=== PATIENT | female | born 1970 | race Caucasian/White ===

== ENCOUNTER 2019-01-17 13:06 | Inpatient (IN) | payer BC ==
[2019-01-17] MEDS ORDERED: IPRATROPIUM 0.5 MG/2.5 ML NEBU INHALATION STA (13:24)
[2019-01-17] MEDS ORDERED: ALBUTEROL NEBULIZED 2.5 MG/3 ML INHALATION STA (13:24)
[2019-01-17] MEDS ORDERED: methylPREDNISolone SOD SUCCI 125 MG/2 ML VIAL IV STA (13:24)
[2019-01-17] MEDS ORDERED: MAGNESIUM SULFATE-D5W PMX 1 GM in DEXTROSE/WATER 1 100ML.BAG IVPB STA (13:24)
[2019-01-17] MEDS ORDERED: SODIUM CHLORIDE 0.9% 500 ML 500 ML IV STA (13:24)
--- NOTE | 2019-01-17 13:36 | ED ---
General Adult HPI - General Chief complaint: Shortness of Breath Stated complaint: [place] Time Seen by Provider: 01/17/19 13:10 Source: patient, RN notes reviewed Mode of arrival: ambulatory Limitations: no limitations - History of Present Illness Initial comments: This is a 48-year-old female with a past medical history significant for asthma. Patient states she was recently told she had pneumonia and was started on antibiotics but there was no chest x-ray done. Patient comes in today because her breathing is getting worse and she no longer has any tubing for her nebulizer. Patient denies any fever that she knows of but has had the chills. Patient denies any chest pain or palpitations. Patient states she is coughing quite a bit but not a lot of sputum production. Patient denies any swelling to the legs or any calf tenderness. Patient denies any other symptoms at this time. Patient denies nausea vomiting diarrhea. Patient denies headache patient denies numbness weakness. - Related Data Home Medications Medication Instructions Recorded Confirmed Ibuprofen [Motrin Ib] 400 mg PO Q4H PRN 01/17/19 01/17/19 Levofloxacin [Levaquin] 500 mg PO W/SUPPER 01/17/19 01/17/19 guaiFENesin [Mucinex] 1,200 mg PO Q12H PRN 01/17/19 01/17/19 methylPREDNISolone [Medrol Dose See Taper PO DIRECTED 01/17/19 01/17/19 Pack] Allergies Allergy/AdvReac Type Severity Reaction Status Date / Time No Known Allergies Allergy Verified 01/17/19 13:34 Review of Systems ROS Statement: Those systems with pertinent positive or pertinent negative responses have been documented in the HPI. ROS Other: All systems not noted in ROS Statement are negative. Past Medical History Past Medical History: No Reported History, Asthma Additional Past Medical History / Comment(s): heart murmer since childhood History of Any Multi-Drug Resistant Organisms: None Reported Past Surgical History: Section Past Anesthesia/Blood Transfusion Reactions: No Reported Reaction Past Psychological History: No Psychological Hx Reported Smoking Status: Light tobacco smoker Past Alcohol Use History: None Reported Past Drug Use History: None Reported - Past Family History Father Family Medical History: No Reported History General Exam - General Exam Comments Initial Comments: GENERAL: Patient is well-developed and well-nourished. Patient is nontoxic and well- hydrated and is in mild distress. ENT: Neck is soft and supple. No significant lymphadenopathy is noted. Oropharynx is clear. Moist mucous membranes. Neck has full range of motion without el iciting any pain. EYES: The sclera were anicteric and conjunctiva were pink and moist. Extraocular movements were intact and pupils were equal round and reactive to light. Eyelids were unremarkable. PULMONARY: Diffuse expiratory wheezing CARDIOVASCULAR: There is a regular rate and rhythm without any murmurs gallops or rubs. ABDOMEN: Soft and nontender with normal bowel sounds. SKIN: Skin is clear with no lesions or rashes and otherwise unremarkable. NEUROLOGIC: Patient is alert and oriented x3. Cranial nerves II through XII are grossly intact. Motor and sensory are also intact. Normal speech, volume and content. Symmetrical smile. MUSCULOSKELETAL: Normal extremities with adequate strength and full range of motion. No lower extremity swelling or edema. No calf tenderness. LYMPHATICS: No significant lymphadenopathy is noted PSYCHIATRIC: Normal psychiatric evaluation. Limitations: no limitations Course Vital Signs 01/17/19 01/17/19 01/17/19 13:09 14:19 14:45 Temperature 97.3 F L Pulse Rate 99 74 97 Respiratory 28 H Rate Blood Pressure 146/87 O2 Sat by Pulse 89 L Oximetry 01/17/19 15:00 Temperature 97.8 F Pulse Rate 92 Respiratory 22 Rate Blood Pressure 113/99 O2 Sat by Pulse 94 L Oximetry Medical Decision Making - Medical Decision Making Chest x-ray shows no acute abnormality. I gave the patient audible breathing treatments in the department as well as steroids. I went back into reevaluate the patient patient's lungs were still diffusely wheezing and she only felt mildly better. I started the patient on Rocephin. I spoke with Dr. Gaines he agreed to admit the patient admitted the patient wrote admitting orders. - Lab Data Result diagrams: 01/17/19 13:29 01/17/19 13:29 Lab Results 01/17/19 01/17/19 01/17/19 Range/Units 13:29 13:29 13:29 WBC 13.9 H (3.8-10.6) k/uL RBC 4.78 (3.80-5.40) m/uL Hgb 15.2 (11.4-16.0) gm/dL Hct 43.6 (34.0-46.0) % MCV 91.2 (80.0-100.0) fL MCH 31.7 (25.0-35.0) pg MCHC 34.8 (31.0-37.0) g/dL RDW 13.0 (11.5-15.5) % Plt Count 360 (150-450) k/uL Neutrophils % 87 % Lymphocytes % 7 % Monocytes % 4 % Eosinophils % 0 % Basophils % 1 % Neutrophils # 12.1 H (1.3-7.7) k/uL Lymphocytes # 0.9 L (1.0-4.8) k/uL Monocytes # 0.5 (0-1.0) k/uL Eosinophils # 0.0 (0-0.7) k/uL Basophils # 0.1 (0-0.2) k/uL PT 10.2 (9.0-12.0) sec INR 0.9 (<1.2) APTT 23.0 (22.0-30.0) sec D-Dimer 0.28 (<0.60) mg/L FEU Sodium 140 (137-145) mmol/L Potassium 4.6 (3.5-5.1) mmol/L Chloride 105 (98-107) mmol/L Carbon Dioxide 24 (22-30) mmol/L Anion Gap 11 mmol/L BUN 16 (7-17) mg/dL Creatinine 0.86 (0.52-1.04) mg/dL Est GFR (CKD-EPI)AfAm >90 (>60 ml/min/1.73 sqM) Est GFR (CKD-EPI)NonAf 81 (>60 ml/min/1.73 sqM) Glucose 117 H (74-99) mg/dL Calcium 10.1 (8.4-10.2) mg/dL Magnesium 2.2 (1.6-2.3) mg/dL Total Bilirubin 0.5 (0.2-1.3) mg/dL AST 27 (14-36) U/L ALT 24 (9-52) U/L Alkaline Phosphatase 115 (38-126) U/L Troponin I (0.000-0.034) ng/mL Total Protein 8.4 H (6.3-8.2) g/dL Albumin 4.5 (3.5-5.0) g/dL 01/17/19 Range/Units 13:29 WBC (3.8-10.6) k/uL RBC (3.80-5.40) m/uL Hgb (11.4-16.0) gm/dL Hct (34.0-46.0) % MCV (80.0-100.0) fL MCH (25.0-35.0) pg MCHC (31.0-37.0) g/dL RDW (11.5-15.5) % Plt Count (150-450) k/uL Neutrophils % % Lymphocytes % % Monocytes % % Eosinophils % % Basophils % % Neutrophils # (1.3-7.7) k/uL Lymphocytes # (1.0-4.8) k/uL Monocytes # (0-1.0) k/uL Eosinophils # (0-0.7) k/uL Basophils # (0-0.2) k/uL PT (9.0-12.0) sec INR (<1.2) APTT (22.0-30.0) sec D-Dimer (<0.60) mg/L FEU Sodium (137-145) mmol/L Potassium (3.5-5.1) mmol/L Chloride (98-107) mmol/L Carbon Dioxide (22-30) mmol/L Anion Gap mmol/L BUN (7-17) mg/dL Creatinine (0.52-1.04) mg/dL Est GFR (CKD-EPI)AfAm (>60 ml/min/1.73 sqM) Est GFR (CKD-EPI)NonAf (>60 ml/min/1.73 sqM) Glucose (74-99) mg/dL Calcium (8.4-10.2) mg/dL Magnesium (1.6-2.3) mg/dL Total Bilirubin (0.2-1.3) mg/dL AST (14-36) U/L ALT (9-52) U/L Alkaline Phosphatase (38-126) U/L Troponin I <0.012 (0.000-0.034) ng/mL Total Protein (6.3-8.2) g/dL Albumin (3.5-5.0) g/dL Critical Care Time Critical Care Time: Yes Total Critical Care Time: 35 Disposition Clinical Impression: Status asthmaticus, Acute bronchitis Disposition: ADMITTED IP TO THIS HOSP Referrals: Greg Sigala MD [Primary Care Provider] - 1-2 days Time of Disposition: 16:05
[2019-01-17 13:38] LABS: Basophils # (A) 0.1 k/uL (0-0.2); Basophils % (A) 1 %; Eosinophils % (A) 0 %; HCT 43.6 % (34.0-46.0); HGB 15.2 gm/dL (11.4-16.0); Lymphocytes # (A) 0.9 k/uL (1.0-4.8); Lymphocytes % (A) 7 %; MCH 31.7 pg (25.0-35.0); MCHC 34.8 g/dL (31.0-37.0); MCV 91.2 fL (80.0-100.0); Mean Platelet Volume 6.3; Monocytes # (A) 0.5 k/uL (0-1.0); Monocytes % (A) 4 %; Neutrophils # (A) 12.1 k/uL (1.3-7.7); Neutrophils % (A) 87 %; Platelet Count 360 k/uL (150-450); RBC 4.78 m/uL (3.80-5.40); WBC 13.9 k/uL (3.8-10.6)
[2019-01-17 13:47] LABS: ALT 24 U/L (9-52); AST 27 U/L (14-36); African American GFR (CKD) >90 (>60 ml/min/1.73 sqM); Albumin 4.5 g/dL (3.5-5.0); Alkaline Phosphatase 115 U/L (38-126); Anion Gap 11 mmol/L; Blood Urea Nitrogen 16 mg/dL (7-17); Calcium 10.1 mg/dL (8.4-10.2); Carbon Dioxide 24 mmol/L (22-30); Chloride 105 mmol/L (98-107); Glucose 117 mg/dL (74-99); Magnesium 2.2 mg/dL (1.6-2.3); Potassium 4.6 mmol/L (3.5-5.1); Sodium 140 mmol/L (137-145); Total Bilirubin 0.5 mg/dL (0.2-1.3); Total Protein 8.4 g/dL (6.3-8.2)
[2019-01-17 13:53] LABS: D-Dimer 0.28 mg/L FEU (<0.60); INR 0.9 (<1.2); Prothrombin Time 10.2 sec (9.0-12.0)
[2019-01-17] MEDS ORDERED: cefTRIAXone IN SWFI 1,000 MG/10 ML SYRINGE IVP STA ×2 (13:57→15:46)
--- NOTE | 2019-01-17 15:07 | XR ---
EXAMINATION TYPE: XR chest 2V DATE OF EXAM: 01/17/2019 COMPARISON: 03/17/2014 HISTORY: Chest pain TECHNIQUE: Frontal and lateral views of the chest are obtained. FINDINGS: There is no focal air space opacity. No evidence for pneumothorax. No pleural effusion. The cardiac silhouette size is within normal limits. The osseous structures are grossly intact. IMPRESSION: 1. No acute cardiopulmonary process.
[2019-01-17] MEDS ORDERED: IPRATROPIUM-ALBUTEROL 3 ML NEB INHALATION PRN ×2 (16:06→23:11)
[2019-01-17] MEDS ORDERED: AZITHROMYCIN 500 MG TAB PO SCH (17:00)
[2019-01-17] MEDS: methylPREDNISolone SOD SUCCI 125 MG/2 ML VIAL IV SCH ×2 (18:51→23:22)
[2019-01-17 19:08] VITALS: BMI 41.1
[2019-01-17] MEDS: BUDESONIDE 0.5 MG/2 ML NEBU INHALATION SCH ×2 (20:06→20:44)
[2019-01-17] MEDS: IPRATROPIUM-ALBUTEROL 3 ML NEB INHALATION SCH (20:06)
[2019-01-17 20:31] LABS: Glucose,Whole Blood 147 mg/dL (75-99)
[2019-01-17] MEDS: LEVOFLOXACIN 500 MG TAB PO SCH (20:43)
[2019-01-17] MEDS: INSULIN ASPART (NovoLOG) 100 UNIT/ML VIAL SQ SCH (20:44)
--- NOTE | 2019-01-17 21:51 | P.HPIM ---
History of Present Illness H&P Date: 01/17/19 Chief Complaint: Dysuria Patient is a 48-year-old female with a known history of asthma and occasional smoking came to ER with the complaints of worsening shortness of breath while she was at work today morning. Patient was brought to the hospital by her coworker. Patient's symptoms started with difficulty in breathing and cough and congestion last Monday. Patient was seen by her physician on Monday. She was started on Levaquin and adult Dosepak. Patient has been taking her medications but her symptoms did not resolve. Patient presents to the hospital due to wor sening shortness of breath and wheezing. Patient says that she did have fever 2 days back. Patient has been afebrile currently. No complaints of chest pain. Patient does have exertional dyspnea even with minimal ambulation. Does have cough without sputum production. Denied any fever currently. No chest pain. No leg swelling. Denied any recent travel. Patient was tachypneic and pulse ox was 89% when she came to the hospital. Chest x-ray showed no acute cardiopulmonary process. WBC 13.9 Review of Systems Constitutional: Patient denies any fever or chills . No generalized weakness or weight loss. Abdomen: Patient denied nausea vomiting and diarrhea and abdominal pain. Cardiovascular: Patient denies any chest pain or short of breath no palpitations. Respiratory: Without sputum production and shortness of breath Neurologic: Patient denied any numbness or tingling headache. Musculoskeletal: Patient denies any complaints of joint swelling or deformity. Skin: Negative Psychiatric: Negative Endocrine: No heat or cold intolerance. No recent weight gain. Genitourinary: No dysuria or hematuria. All other 14 point ROS negative except the above Past Medical History Past Medical History: No Reported History, Asthma Additional Past Medical History / Comment(s): heart murmer since childhood History of Any Multi-Drug Resistant Organisms: None Reported Past Surgical History: Section Past Anesthesia/Blood Transfusion Reactions: No Reported Reaction Past Psychological History: No Psychological Hx Reported Smoking Status: Light tobacco smoker Past Alcohol Use History: None Reported Past Drug Use History: None Reported - Past Family History Father Family Medical History: No Reported History Medications and Allergies Home Medications Medication Instructions Recorded Confirmed Type Ibuprofen [Motrin Ib] 400 mg PO Q4H PRN 01/17/19 01/17/19 History Levofloxacin [Levaquin] 500 mg PO W/SUPPER 01/17/19 01/17/19 History guaiFENesin [Mucinex] 1,200 mg PO Q12H PRN 01/17/19 01/17/19 History methylPREDNISolone [Medrol Dose See Taper PO DIRECTED 01/17/19 01/17/19 History Pack] Allergies Allergy/AdvReac Type Severity Reaction Status Date / Time No Known Allergies Allergy Verified 01/17/19 13:34 Physical Exam Vitals: Vital Signs Temp Pulse Pulse Resp BP BP Pulse Ox 01/17/19 20:26 100 01/17/19 20:10 101 H 93 L 01/17/19 18:57 97.8 F 90 18 116/65 90 L 01/17/19 18:20 97.6 F 91 16 118/71 93 L 01/17/19 17:08 98.0 F 86 20 131/86 100 01/17/19 15:00 97.8 F 92 22 113/99 94 L 01/17/19 14:45 97 01/17/19 14:19 74 01/17/19 13:09 97.3 F L 99 28 H 146/87 89 L Intake and Output 01/17/19 01/17/19 01/17/19 06:59 14:59 22:59 Other: # Voids 1 Weight 108.862 kg PHYSICAL EXAMINATION: Patient is lying in the bed mild distress, awake alert and oriented.. HEENT: Normocephalic. Neck is supple. Pupils reactive. Nostrils clear. Oral cavity is moist. Ears reveal no drainage. Neck reveals no JVD, carotid bruits, or thyromegaly. CHEST EXAMINATION: Trachea is central. Symmetrical expansion. Bilateral diffuse wheezing and diminished air entry. CARDIAC: Normal S1, S2 with no gallops. Positive mild systolic murmur ABDOMEN: Soft. Bowel sounds normal. No organomegaly. No abdominal bruits. Extremities: reveal no edema. No clubbing or cyanosis Neurologically awake, alert, oriented x3 with well-coordinated movements. No focal deficits noted Skin: No rash or skin lesions. Psychiatric: Coperative. Nonsuicidal Musculoskeletal: No joint swelling or deformity. Normal range of motion. Results CBC & Chem 7: 01/17/19 13:29 01/17/19 13:29 Labs: Abnormal Lab Results - Last 24 Hours (Table) 01/17/19 01/17/19 01/17/19 Range/Units 13:29 13:29 20:29 WBC 13.9 H (3.8-10.6) k/uL Neutrophils # 12.1 H (1.3-7.7) k/uL Lymphocytes # 0.9 L (1.0-4.8) k/uL Glucose 117 H (74-99) mg/dL POC Glucose (mg/dL) 147 H (75-99) mg/dL Total Protein 8.4 H (6.3-8.2) g/dL Thrombosis Risk Factor Assmnt - DVT/VTE Prophylaxis DVT/VTE Prophylaxis: Pharmacologic Prophylaxis ordered - Choose All That Apply Any of the Below Risk Factors Present?: Yes Each Factor Represents 1 point: Age 41-60 years Other Risk Factors: No Other congenital or acquired thrombophilia - If yes, enter type in comment: No Thrombosis Risk Factor Assessment Total Risk Factor Score: 1 Thrombosis Risk Factor Assessment Level: Low Risk Assessment and Plan Assessment: Acute severe asthma exacerbation with acute tracheobronchitis Acute hypoxic respiratory failure secondary to asthma exacerbation Morbid obesity with BMI 41.2 Mild leukocytosis likely due to steroids and bronchitis Light tobacco smoker DVT prophylaxis with heparin subcu Plan: Patient will be continued on IV steroids in the form of methylprednisolone 60 mg every 6 hourly, DuoNeb's, Pulmicort and oxygen therapy as needed. Continue with antibiotics in the form of Levaquin. Will follow closely and further recommendations based on the clinical course. Smoking cessation has been counseled. Time with Patient: Greater than 30
[2019-01-17] MEDS: HEPARIN SODIUM,PORCINE 5,000 UNIT/ML 1 ML VIAL SQ SCH (23:22)
[2019-01-18] MEDS: guaiFENesin 600 MG TABLET.ER PO PRN ×2 (00:36→17:39)
[2019-01-18] MEDS: ACETAMINOPHEN TAB 325 MG TAB PO PRN ×3 (00:36→23:13)
[2019-01-18] MEDS: IPRATROPIUM-ALBUTEROL 3 ML NEB INHALATION SCH ×6 (03:28→21:37)
[2019-01-18] MEDS: methylPREDNISolone SOD SUCCI 125 MG/2 ML VIAL IV SCH ×4 (05:07→23:13)
[2019-01-18 07:02] LABS: Glucose,Whole Blood 143 mg/dL (75-99)
[2019-01-18] MEDS: HEPARIN SODIUM,PORCINE 5,000 UNIT/ML 1 ML VIAL SQ SCH ×3 (07:34→23:13)
[2019-01-18] MEDS: INSULIN ASPART (NovoLOG) 100 UNIT/ML VIAL SQ SCH ×4 (07:34→19:56)
[2019-01-18 08:07] LABS: Basophils % (A) 0 %; Eosinophils % (A) 0 %; HCT 41.8 % (34.0-46.0); HGB 14.3 gm/dL (11.4-16.0); Lymphocytes # (A) 0.6 k/uL (1.0-4.8); Lymphocytes % (A) 5 %; MCH 32.1 pg (25.0-35.0); MCHC 34.3 g/dL (31.0-37.0); MCV 93.4 fL (80.0-100.0); Mean Platelet Volume 6.4; Monocytes # (A) 0.3 k/uL (0-1.0); Monocytes % (A) 2 %; Neutrophils % (A) 91 %; Platelet Count 360 k/uL (150-450); RBC 4.47 m/uL (3.80-5.40); RDW 14.6 % (11.5-15.5); WBC 12.1 k/uL (3.8-10.6)
[2019-01-18 08:30] LABS: African American GFR (CKD) >90 (>60 ml/min/1.73 sqM); Anion Gap 13 mmol/L; Blood Urea Nitrogen 16 mg/dL (7-17); Calcium 9.8 mg/dL (8.4-10.2); Carbon Dioxide 22 mmol/L (22-30); Chloride 105 mmol/L (98-107); Glucose 145 mg/dL (74-99); Potassium 4.3 mmol/L (3.5-5.1); Sodium 140 mmol/L (137-145)
[2019-01-18] MEDS: BUDESONIDE 0.5 MG/2 ML NEBU INHALATION SCH ×2 (08:47→21:37)
[2019-01-18 12:01] LABS: Glucose,Whole Blood 144 mg/dL (75-99)
[2019-01-18 17:22] LABS: Glucose,Whole Blood 144 mg/dL (75-99)
[2019-01-18] MEDS: LEVOFLOXACIN 500 MG TAB PO SCH (17:28)
[2019-01-18 19:22] LABS: Glucose,Whole Blood 183 mg/dL (75-99)
--- NOTE | 2019-01-18 22:31 | P.PN ---
Subjective Progress Note Date: 01/18/19 Principal diagnosis: Acute COPD exacerbation Patient is a 48-year-old female with a known history of asthma and occasional smoking came to ER with the complaints of worsening shortness of breath while she was at work today morning. 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 Patient's symptoms started with difficulty in breathing and cough and congestion last Monday. Patient was seen by her physician on Monday. She was started on Levaquin and adult Dosepak. Patient has been taking her medications but her symptoms did not resolve. Patient presents to the hospital due to worsening shortness of breath and wheezing. Patient says that she did have fever 2 days back. Patient has been afebrile currently. No complaints of chest pain. Patient does have exertional dyspnea even with minimal ambulation. Does have cough without sputum production. Denied any fever currently. No chest pain. No leg swelling. Denied any recent travel. Patient was tachypneic and pulse ox was 89% when she came to the hospital. Chest x-ray showed no acute cardiopulmonary process. WBC 13.9 01/18/2019 Patient says that her breathing is better today. Patient is less bronchospastic and wheezing improved as well. Still having diffuse rhonchi and exertional dyspnea. Patient is requiring high flow oxygen 5 L for via cannula. Patient has been afebrile. Currently being continued on IV steroids and breathing treatments. No chest pain. No nausea vomiting or abdominal pain. No diarrhea. Current medications reviewed. Objective - Vital Signs Vital signs: Vital Signs Temp 97.8 F 01/18/19 18:44 Pulse 107 H 01/18/19 21:50 Resp 20 01/18/19 18:44 BP 137/73 01/18/19 18:44 Pulse Ox 93 L 01/18/19 18:44 Intake & Output 01/18/19 01/18/19 01/19/19 06:59 18:59 06:59 Other: # Voids 1 2 - Exam PHYSICAL EXAMINATION: Patient is lying in the bed comfortably, no acute distress, awake alert and oriented.. HEENT: Normocephalic. Neck is supple. Pupils reactive. Nostrils clear. Oral cavity is moist. Ears reveal no drainage. Neck reveals no JVD, carotid bruits, or thyromegaly. CHEST EXAMINATION: Trachea is central. Symmetrical expansion. Bilateral air entry improved. Expiratory wheeze and scattered rhonchi. CARDIAC: Normal S1, S2 with no gallops. No murmurs ABDOMEN: Soft. Bowel sounds normal. No organomegaly. No abdominal bruits. Extremities: reveal no edema. No clubbing or cyanosis Neurologically awake, alert, oriented x3 with well-coordinated movements. No focal deficits noted Skin: No rash or skin lesions. Psychiatric: Coperative. Nonsuicidal Musculoskeletal: No joint swelling or deformity. Normal range of motion. - Labs CBC & Chem 7: 01/18/19 07:30 01/18/19 07:30 Labs: Abnormal Lab Results - Last 24 Hours (Table) 01/18/19 01/18/19 01/18/19 Range/Units 07:00 07:30 07:30 WBC 12.1 H (3.8-10.6) k/uL Neutrophils # 11.0 H (1.3-7.7) k/uL Lymphocytes # 0.6 L (1.0-4.8) k/uL Glucose 145 H (74-99) mg/dL POC Glucose (mg/dL) 143 H (75-99) mg/dL 01/18/19 01/18/19 01/18/19 Range/Units 11:57 17:18 19:20 WBC (3.8-10.6) k/uL Neutrophils # (1.3-7.7) k/uL Lymphocytes # (1.0-4.8) k/uL Glucose (74-99) mg/dL POC Glucose (mg/dL) 144 H 144 H 183 H (75-99) mg/dL Microbiology - Last 24 Hours (Table) 01/17/19 13:45 Blood Culture - Preliminary Blood No Growth after 24 hours Assessment and Plan Assessment: Acute severe asthma exacerbation with acute tracheobronchitis Acute hypoxic respiratory failure secondary to asthma exacerbation Morbid obesity with BMI 41.2 Mild leukocytosis likely due to steroids and bronchitis Light tobacco smoker DVT prophylaxis with heparin subcu Plan: Patient will be continued on IV steroids in the form of methylprednisolone 60 mg every 6 hourly, DuoNeb's, Pulmicort and oxygen therapy as needed. Continue with antibiotics in the form of Levaquin. Will follow closely and further recommendations based on the clinical course. Smoking cessation has been counseled. Time with Patient: Greater than 30
[2019-01-19] MEDS: IPRATROPIUM-ALBUTEROL 3 ML NEB INHALATION SCH ×6 (00:42→20:48)
[2019-01-19] MEDS: BENZOCAINE/MENTHOL LOZENG 1 EACH LOZENGE MUCOUS MEM PRN ×2 (04:10→11:42)
[2019-01-19] MEDS: methylPREDNISolone SOD SUCCI 125 MG/2 ML VIAL IV SCH ×3 (05:03→17:33)
--- NOTE | 2019-01-19 06:33 | XR ---
EXAMINATION TYPE: XR chest 1V DATE OF EXAM: 01/19/2019 HISTORY: [place]. REFERENCE: Previous study dated 01/17/2019. FINDINGS: Lungs are clear. Pleural spaces are clear. The heart is not enlarged. IMPRESSION: NO ACTIVE INTRATHORACIC DISEASE.
[2019-01-19 06:58] LABS: Glucose,Whole Blood 126 mg/dL (75-99)
[2019-01-19] MEDS: FORMOTEROL FUMARATE 20 MCG/2 ML NEBU INHALATION SCH ×2 (07:38→20:48)
[2019-01-19] MEDS: BUDESONIDE 0.5 MG/2 ML NEBU INHALATION SCH ×2 (07:38→20:48)
[2019-01-19 07:59] LABS: Basophils % (A) 0 %; Eosinophils % (A) 0 %; HCT 42.5 % (34.0-46.0); HGB 14.3 gm/dL (11.4-16.0); Lymphocytes # (A) 0.6 k/uL (1.0-4.8); Lymphocytes % (A) 4 %; MCH 30.7 pg (25.0-35.0); MCHC 33.7 g/dL (31.0-37.0); MCV 91.1 fL (80.0-100.0); Mean Platelet Volume 6.6; Monocytes # (A) 0.5 k/uL (0-1.0); Monocytes % (A) 3 %; Neutrophils # (A) 16.4 k/uL (1.3-7.7); Neutrophils % (A) 92 %; Platelet Count 319 k/uL (150-450); RBC 4.67 m/uL (3.80-5.40); RDW 12.5 % (11.5-15.5); WBC 17.8 k/uL (3.8-10.6)
[2019-01-19 08:02] LABS: African American GFR (CKD) >90 (>60 ml/min/1.73 sqM); Anion Gap 10 mmol/L; Blood Urea Nitrogen 18 mg/dL (7-17); Calcium 9.9 mg/dL (8.4-10.2); Carbon Dioxide 23 mmol/L (22-30); Chloride 106 mmol/L (98-107); Glucose 139 mg/dL (74-99); Potassium 4.5 mmol/L (3.5-5.1); Sodium 139 mmol/L (137-145)
[2019-01-19] MEDS: INSULIN ASPART (NovoLOG) 100 UNIT/ML VIAL SQ SCH ×4 (08:38→22:08)
[2019-01-19] MEDS: HEPARIN SODIUM,PORCINE 5,000 UNIT/ML 1 ML VIAL SQ SCH ×2 (09:44→17:33)
[2019-01-19 11:54] LABS: Glucose,Whole Blood 168 mg/dL (75-99)
[2019-01-19] MEDS ORDERED: NYSTATIN 100,000 UNIT/ML SUSP 500,000 UNIT/5 ML CUP PO PRN (12:07)
[2019-01-19] MEDS: FAMOTIDINE 20 MG TAB PO SCH ×2 (12:32→22:08)
[2019-01-19] MEDS: guaiFENesin 600 MG TABLET.ER PO PRN (15:43)
[2019-01-19] MEDS: AZITHROMYCIN 500 MG TAB PO SCH (15:45)
[2019-01-19 16:57] LABS: Glucose,Whole Blood 111 mg/dL (75-99)
[2019-01-19 22:17] LABS: Glucose,Whole Blood 121 mg/dL (75-99)
--- NOTE | 2019-01-20 00:18 | P.PN ---
Subjective Progress Note Date: 01/19/19 Principal diagnosis: Acute COPD exacerbation Patient is a 48-year-old female with a known history of asthma and occasional smoking came to ER with the complaints of worsening shortness of breath while she was at work today morning. 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 Patient's symptoms started with difficulty in breathing and cough and congestion last Monday. Patient was seen by her physician on Monday. She was started on Levaquin and adult Dosepak. Patient has been taking her medications but her symptoms did not resolve. Patient presents to the hospital due to worsening shortness of breath and wheezing. Patient says that she did have fever 2 days back. Patient has been afebrile currently. No complaints of chest pain. Patient does have exertional dyspnea even with minimal ambulation. Does have cough without sputum production. Denied any fever currently. No chest pain. No leg swelling. Denied any recent travel. Patient was tachypneic and pulse ox was 89% when she came to the hospital. Chest x-ray showed no acute cardiopulmonary process. WBC 13.9 01/18/2019 Patient says that her breathing is better today. Patient is less bronchospastic and wheezing improved as well. Still having diffuse rhonchi and exertional dyspnea. Patient is requiring high flow oxygen 5 L for via cannula. Patient has been afebrile. Currently being continued on IV steroids and breathing treatments. No chest pain. No nausea vomiting or abdominal pain. No diarrhea. 01/19/2019 Patient is still having wheezing and exertional dyspnea. Currently on high flow oxygen with another cannula at 5 L. Denied any complaints of dizziness or lightheadedness. No leg swelling. D-dimer was not elevated on admission. No fever no chills. Patient does have cough without much sputum production. Repeat Chest x-ray today showed no acute cardiopulmonary process. Antibiotics will be continued in the form of ceftriaxone and azithromycin. Current medications reviewed. Active Medications Acetaminophen (Tylenol Tab) 650 mg PO Q4HR PRN PRN Reason: Fever and/ or Pain Last Admin: 01/18/19 23:13 Dose: 650 mg Documented by: Albuterol/Ipratropium (Duoneb 0.5 Mg-3 Mg/3 Ml Soln) 3 ml INHALATION RT-Q4H TEGAN Last Admin: 01/19/19 20:48 Dose: 3 ml Documented by: Albuterol/Ipratropium (Duoneb 0.5 Mg-3 Mg/3 Ml Soln) 3 ml INHALATION RT-Q2H PRN PRN Reason: Shortness Of Breath Or Wheezing Azithromycin (Zithromax) 500 mg PO DAILY [facility] Last Admin: 01/19/19 15:45 Dose: 500 mg Documented by: Benzocaine/Menthol (Cepacol Lozenge) 1 each MUCOUS MEM Q6HR PRN PRN Reason: Sore Throat Last Admin: 01/19/19 11:42 Dose: 1 each Documented by: Budesonide (Pulmicort) 0.5 mg INHALATION RT-BID [facility] Last Admin: 01/19/19 20:48 Dose: 0.5 mg Documented by: Famotidine (Pepcid) 20 mg PO BID [facility] Last Admin: 01/19/19 22:08 Dose: 20 mg Documented by: Formoterol Fumarate (Perforomist) 20 mcg INHALATION RT-BID [facility] Last Admin: 01/19/19 20:48 Dose: 20 mcg Documented by: Guaifenesin (Mucinex) 1,200 mg PO Q12H PRN PRN Reason: Congestion Last Admin: 01/19/19 15:43 Dose: 1,200 mg Documented by: Heparin Sodium (Porcine) (Heparin) 5,000 unit SQ Q8HR [facility] Last Admin: 01/19/19 17:33 Dose: 5,000 unit Documented by: Ceftriaxone Sodium 1 gm/ (Sodium Chloride) 50 mls @ 100 mls/hr IVPB Q24HR [facility] Last Admin: 01/19/19 15:42 Dose: 100 mls/hr Documented by: Insulin Aspart (Novolog) 0 unit SQ ACHS [facility]; Protocol Last Admin: 01/19/19 22:08 Dose: Not Given Documented by: Methylprednisolone Sodium Succinate (Solu-Medrol) 60 mg IV Q6HR [facility] Last Admin: 01/19/19 17:33 Dose: 60 mg Documented by: Nystatin (Mycostatin Oral Susp) 500,000 unit PO QID PRN PRN Reason: Sore Throat Last Admin: 01/19/19 15:42 Dose: 500,000 unit Documented by: Objective - Vital Signs Vital signs: Vital Signs Temp 97.8 F 01/19/19 07:00 Pulse 92 01/19/19 11:29 Resp 16 01/19/19 07:00 BP 117/73 01/19/19 07:00 Pulse Ox 95 01/19/19 09:45 Intake & Output 01/18/19 01/19/19 01/19/19 18:59 06:59 18:59 Intake Total 540 Balance 540 Intake: Oral 540 Other: # Voids 2 - Exam PHYSICAL EXAMINATION: Patient is lying in the bed comfortably, no acute distress, awake alert and or iented.. HEENT: Normocephalic. Neck is supple. Pupils reactive. Nostrils clear. Oral cavity is moist. Ears reveal no drainage. Neck reveals no JVD, carotid bruits, or thyromegaly. CHEST EXAMINATION: Trachea is central. Symmetrical expansion. Bilateral air entry improved. Expiratory wheeze and diffuse rhonchi. CARDIAC: Normal S1, S2 with no gallops. No murmurs ABDOMEN: Soft. Bowel sounds normal. No organomegaly. No abdominal bruits. Extremities: reveal no edema. No clubbing or cyanosis Neurologically awake, alert, oriented x3 with well-coordinated movements. No focal deficits noted Skin: No rash or skin lesions. Psychiatric: Coperative. Nonsuicidal Musculoskeletal: No joint swelling or deformity. Normal range of motion. - Labs CBC & Chem 7: 01/19/19 07:00 01/19/19 07:00 Labs: Abnormal Lab Results - Last 24 Hours (Table) 01/18/19 01/18/19 01/19/19 Range/Units 17:18 19:20 06:56 WBC (3.8-10.6) k/uL Neutrophils # (1.3-7.7) k/uL Lymphocytes # (1.0-4.8) k/uL BUN (7-17) mg/dL Glucose (74-99) mg/dL POC Glucose (mg/dL) 144 H 183 H 126 H (75-99) mg/dL 01/19/19 01/19/19 01/19/19 Range/Units 07:00 07:00 11:50 WBC 17.8 H (3.8-10.6) k/uL Neutrophils # 16.4 H (1.3-7.7) k/uL Lymphocytes # 0.6 L (1.0-4.8) k/uL BUN 18 H (7-17) mg/dL Glucose 139 H (74-99) mg/dL POC Glucose (mg/dL) 168 H (75-99) mg/dL Microbiology - Last 24 Hours (Table) 01/17/19 13:45 Blood Culture - Preliminary Blood No Growth after 24 hours Assessment and Plan Assessment: Acute severe asthma exacerbation with acute tracheobronchitis Acute hypoxic respiratory failure secondary to asthma exacerbation Morbid obesity with BMI 41.2 Mild leukocytosis likely due to steroids and bronchitis Light tobacco smoker DVT prophylaxis with heparin subcu Plan: Patient will be continued on IV steroids in the form of methylprednisolone 60 mg every 6 hourly, DuoNeb's, Pulmicort and oxygen therapy as needed. Continue with antibiotics in the form of ceftriaxone and azithromycin.. Will follow closely and further recommendations based on the clinical course. Smoking cessation has been counseled. Time with Patient: Greater than 30
[2019-01-20] MEDS: IPRATROPIUM-ALBUTEROL 3 ML NEB INHALATION SCH ×6 (00:47→20:41)
[2019-01-20] MEDS: HEPARIN SODIUM,PORCINE 5,000 UNIT/ML 1 ML VIAL SQ SCH ×3 (01:14→18:14)
[2019-01-20] MEDS: methylPREDNISolone SOD SUCCI 125 MG/2 ML VIAL IV SCH ×4 (01:14→18:14)
[2019-01-20 07:08] LABS: Basophils # (A) 0.1 k/uL (0-0.2); Basophils % (A) 0 %; Eosinophils % (A) 0 %; HCT 41.3 % (34.0-46.0); Lymphocytes # (A) 0.7 k/uL (1.0-4.8); Lymphocytes % (A) 4 %; MCH 32.2 pg (25.0-35.0); MCV 94.7 fL (80.0-100.0); Mean Platelet Volume 6.3; Monocytes # (A) 0.5 k/uL (0-1.0); Monocytes % (A) 3 %; Neutrophils # (A) 16.4 k/uL (1.3-7.7); Neutrophils % (A) 92 %; Platelet Count 323 k/uL (150-450); RBC 4.37 m/uL (3.80-5.40); RDW 13.6 % (11.5-15.5); WBC 17.9 k/uL (3.8-10.6)
[2019-01-20 07:24] LABS: Calcium 9.2 mg/dL (8.4-10.2); Potassium 4.8 mmol/L (3.5-5.1)
[2019-01-20 07:26] LABS: Glucose,Whole Blood 119 mg/dL (75-99)
[2019-01-20] MEDS: FORMOTEROL FUMARATE 20 MCG/2 ML NEBU INHALATION SCH ×2 (08:22→20:40)
[2019-01-20] MEDS: BUDESONIDE 0.5 MG/2 ML NEBU INHALATION SCH ×2 (08:22→20:41)
[2019-01-20] MEDS: INSULIN ASPART (NovoLOG) 100 UNIT/ML VIAL SQ SCH ×3 (09:51→17:27)
[2019-01-20] MEDS: FAMOTIDINE 20 MG TAB PO SCH ×2 (09:58→21:51)
[2019-01-20] MEDS: AZITHROMYCIN 500 MG TAB PO SCH (09:58)
[2019-01-20 12:00] LABS: Glucose,Whole Blood 181 mg/dL (75-99)
[2019-01-20] MEDS ORDERED: ALPRAZolam 0.5 MG TAB PO PRN (12:13)
[2019-01-20] MEDS ORDERED: SODIUM CHLORIDE 0.9% 500 ML 500 ML IV ONE (12:22)
[2019-01-20] MEDS: guaiFENesin 600 MG TABLET.ER PO PRN (12:23)
--- NOTE | 2019-01-20 13:15 | P.CNPUL ---
History of Present Illness Consult date: 01/20/19 Reason for consult: COPD Chief complaint: Shortness of breath cough and wheezing History of present illness: This is a 48-year-old female with history of asthma as a child, and she had at least a 64-iqto-ycrh smoking history. Patient was last seen in our office on 05/25/2017, and she was seen at the time for follow-up on her pneumonia. Her chest x-ray at that time showed no evidence of pneumonia. However her PFT show ed moderate severe obstructive lung disease, with significant reversibility consistent with asthmatic bronchitis. At that time, the patient was counseled regarding smoking cessation, and she was placed on albuterol/Ventolin as well as breo 200/25, one puff twice a day. Her FEV1 at the time was 48%, however it improved up to 67% post one bronchodilator treatment. A full PFT was not performed on that visit in May of 2017. Patient never came back for follow-up to our office. However she was compliant with her medications, and she continued to smoke intermittently. Patient was admitted this time on 01/17/2019, with almost 2 weeks history of cough wheezing shortness of breath. Cough was described as productive with yellow phlegm, no fever no chills no hemoptysis no chest pain. Patient was initially seen by her primary care physician treated with antibiotics, but no improvement. Since she was admitted, the patient has been on antibiotics, bronchodilators, steroids, and not much im provement over the last 3 days, hence this consult was initiated today. Patient denies any symptoms of GERD denies any symptoms of ALLERGIC rhinitis, denies any symptoms of postnasal drip. Chest x-ray on this admission showed no evidence of infiltrate. Review of Systems REVIEW OF SYSTEMS: CONSTITUTIONAL: Denies any recent significant weight loss or weight gain. EYES: Denies change in vision. EARS, NOSE, MOUTH, THROAT: Denies headaches, denies sore throat. CARDIOVASCULAR: Denies chest pain, palpitations or syncopal episodes. RESPIRATORY: Positive for shortness of breath, cough, congestion no hemoptysis. GASTROINTESTINAL: Denies change in appetite, denies abdominal pain GENITOURINARY: Denies hematuria, denies infections. MUSKULOSKELETAL: Denies pain, denies swelling. INTEGUMENTARY: Denies rash, denies eczema. NEUROLOGICAL: Denies recent memory loss, no recent seizure activity. PSYCHIATRIC: Denies anxiety, denies depression. HEMATOLOGIC/LYMPHATIC: Denies anemia, denies enlarged lymph nodes. Past Medical History Past Medical History: No Reported History, Asthma Additional Past Medical History / Comment(s): heart murmer since childhood History of Any Multi-Drug Resistant Organisms: None Reported Past Surgical History: Section Past Anesthesia/Blood Transfusion Reactions: No Reported Reaction Past Psychological History: No Psychological Hx Reported Smoking Status: Light tobacco smoker Past Alcohol Use History: None Reported Past Drug Use History: None Reported - Past Family History Father Family Medical History: No Reported History Medications and Allergies Home Medications Medication Instructions Recorded Confirmed Type Ibuprofen [Motrin Ib] 400 mg PO Q4H PRN 01/17/19 01/17/19 History Levofloxacin [Levaquin] 500 mg PO W/SUPPER 01/17/19 01/17/19 History guaiFENesin [Mucinex] 1,200 mg PO Q12H PRN 01/17/19 01/17/19 History methylPREDNISolone [Medrol Dose See Taper PO DIRECTED 01/17/19 01/17/19 History Pack] Allergies Allergy/AdvReac Type Severity Reaction Status Date / Time No Known Allergies Allergy Verified 01/17/19 13:34 Physical Exam Vitals: Vital Signs Temp Pulse Pulse Pulse Resp BP Pulse Ox 01/20/19 12:05 92 01/20/19 11:50 90 01/20/19 08:40 88 01/20/19 08:34 82 01/20/19 08:33 82 01/20/19 08:23 82 01/20/19 07:00 98 F 85 16 91/54 98 01/20/19 04:58 88 01/20/19 04:51 84 01/20/19 02:07 97.8 F 76 24 96/52 95 01/20/19 00:53 88 01/20/19 00:47 88 01/20/19 00:38 24 01/19/19 21:14 88 01/19/19 21:01 90 01/19/19 20:49 90 01/19/19 20:00 97.7 F 93 24 134/57 94 L 01/19/19 17:07 94 01/19/19 16:54 90 96 01/19/19 15:00 97.8 F 98 14 128/77 98 Intake and Output 01/19/19 01/20/19 01/20/19 22:59 06:59 14:59 Intake Total 240 Balance 240 Intake: Oral 240 Other: # Voids 2 2 Physical Exam: Revealed a 48-year-old female in no distress, pleasant. Head: Atraumatic normocephalic. HEENT:[Neck is supple.] [No neck masses.] [No thyromegaly.] [No JVD.] Chest: [Symmetrical chest expansion, diffuse rhonchi and wheezes bilaterally. Cardiac Exam: [Normal S1 and S2, no S3 gallop, no murmur.] Abdomen: [Soft, nontender, no megaly, no rebound, no guarding, normal bowel sounds.] Extremities: [No clubbing, no edema, no cyanosis.] Neurological Exam: [No focal neurologic deficit.] Psychiatric: Normal mood affect and normal mental status examination. Lymphatics: No lymphadenopathy. Skin: No rashes Results - Laboratory Findings CBC and BMP: 01/20/19 06:20 01/20/19 06:20 PT/INR, D-dimer PT 10.2 sec (9.0-12.0) 01/17/19 13:29 INR 0.9 (<1.2) 01/17/19 13:29 D-Dimer 0.28 mg/L FEU (<0.60) 01/17/19 13:29 Abnormal lab findings: Abnormal Labs 01/17/19 01/17/19 01/17/19 13:29 13:29 20:29 WBC 13.9 H Neutrophils # 12.1 H Lymphocytes # 0.9 L BUN Glucose 117 H POC Glucose (mg/dL) 147 H Total Protein 8.4 H 01/18/19 01/18/19 01/18/19 07:00 07:30 07:30 WBC 12.1 H Neutrophils # 11.0 H Lymphocytes # 0.6 L BUN Glucose 145 H POC Glucose (mg/dL) 143 H Total Protein 01/18/19 01/18/19 01/18/19 11:57 17:18 19:20 WBC Neutrophils # Lymphocytes # BUN Glucose POC Glucose (mg/dL) 144 H 144 H 183 H Total Protein 01/19/19 01/19/19 01/19/19 06:56 07:00 07:00 WBC 17.8 H Neutrophils # 16.4 H Lymphocytes # 0.6 L BUN 18 H Glucose 139 H POC Glucose (mg/dL) 126 H Total Protein 01/19/19 01/19/19 01/19/19 11:50 16:55 22:07 WBC Neutrophils # Lymphocytes # BUN Glucose POC Glucose (mg/dL) 168 H 111 H 121 H Total Protein 01/20/19 01/20/19 01/20/19 06:20 06:20 07:22 WBC 17.9 H Neutrophils # 16.4 H Lymphocytes # 0.7 L BUN 22 H Glucose 130 H POC Glucose (mg/dL) 119 H Total Protein 01/20/19 11:57 WBC Neutrophils # Lymphocytes # BUN Glucose POC Glucose (mg/dL) 181 H Total Protein - Diagnostic Findings Chest x-ray: image reviewed (No evidence of infiltrate.) Assessment and Plan Assessment: Impression: 1 acute exacerbation of COPD, consistent with asthmatic bronchitis. 2 tobacco dependence syndrome, patient quit smoking recently. 3 acute purulent tracheobronchitis. Recommendation: Fully agree with the present treatment plan including the present course of bronchodilators, steroids, antibiotics, Protonix, will add S ingulair, we'll continue to follow, if the patient does not improve much in the next couple of days, may have to consider bronchoscopy. We'll continue to follow. Time with Patient: Greater than 30
[2019-01-20 17:19] LABS: Glucose,Whole Blood 110 mg/dL (75-99)
[2019-01-20 21:16] LABS: Glucose,Whole Blood 117 mg/dL (75-99)
[2019-01-20] MEDS: MONTELUKAST 10 MG TAB PO SCH (21:51)
[2019-01-20] MEDS: BENZOCAINE/MENTHOL LOZENG 1 EACH LOZENGE MUCOUS MEM PRN (21:51)
--- NOTE | 2019-01-21 00:11 | P.PN ---
Subjective Progress Note Date: 01/20/19 Principal diagnosis: Acute COPD exacerbation Patient is a 48-year-old female with a known history of asthma and occasional smoking came to ER with the complaints of worsening shortness of breath while she was at work today morning. 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 Patient's symptoms started with difficulty in breathing and cough and congestion last Monday. Patient was seen by her physician on Monday. She was started on Levaquin and adult Dosepak. Patient has been taking her medications but her symptoms did not resolve. Patient presents to the hospital due to worsening shortness of breath and wheezing. Patient says that she did have fever 2 days back. Patient has been afebrile currently. No complaints of chest pain. Patient does have exertional dyspnea even with minimal ambulation. Does have cough without sputum production. Denied any fever currently. No chest pain. No leg swelling. Denied any recent travel. Patient was tachypneic and pulse ox was 89% when she came to the hospital. Chest x-ray showed no acute cardiopulmonary process. WBC 13.9 01/18/2019 Patient says that her breathing is better today. Patient is less bronchospastic and wheezing improved as well. Still having diffuse rhonchi and exertional dyspnea. Patient is requiring high flow oxygen 5 L for via cannula. Patient has been afebrile. Currently being continued on IV steroids and breathing treatments. No chest pain. No nausea vomiting or abdominal pain. No diarrhea. 01/19/2019 Patient is still having wheezing and exertional dyspnea. Currently on high flow oxygen with another cannula at 5 L. Denied any complaints of dizziness or lightheadedness. No leg swelling. D-dimer was not elevated on admission. No fever no chills. Patient does have cough without much sputum production. Repeat Chest x-ray today showed no acute cardiopulmonary process. Antibiotics will be continued in the form of ceftriaxone and azithromycin. 01/20/2090 Patient is still having exertional dyspnea and unable to bring up sputum. Currently on high flow oxygen with another cannula. Otherwise currently being continued on IV steroids, DuoNeb's, antibiotics in the form of ceftriaxone and azithromycin. Pulmonary has seen the patient. Continue to follow closely. Otherwise patient says that she feels better. No fever no chills. No other acute overnight issues. Current medications reviewed. Active Medications Acetaminophen (Tylenol Tab) 650 mg PO Q4HR PRN PRN Reason: Fever and/ or Pain Last Admin: 01/18/19 23:13 Dose: 650 mg Documented by: Albuterol/Ipratropium (Duoneb 0.5 Mg-3 Mg/3 Ml Soln) 3 ml INHALATION RT-Q4H [facility] Last Admin: 01/19/19 20:48 Dose: 3 ml Documented by: Albuterol/Ipratropium (Duoneb 0.5 Mg-3 Mg/3 Ml Soln) 3 ml INHALATION RT-Q2H PRN PRN Reason: Shortness Of Breath Or Wheezing Azithromycin (Zithromax) 500 mg PO DAILY [facility] Last Admin: 01/19/19 15:45 Dose: 500 mg Documented by: Benzocaine/Menthol (Cepacol Lozenge) 1 each MUCOUS MEM Q6HR PRN PRN Reason: Sore Throat Last Admin: 01/19/19 11:42 Dose: 1 each Documented by: Budesonide (Pulmicort) 0.5 mg INHALATION RT-BID [facility] Last Admin: 01/19/19 20:48 Dose: 0.5 mg Documented by: Famotidine (Pepcid) 20 mg PO BID [facility] Last Admin: 01/19/19 22:08 Dose: 20 mg Documented by: Formoterol Fumarate (Perforomist) 20 mcg INHALATION RT-BID [facility] Last Admin: 01/19/19 20:48 Dose: 20 mcg Documented by: Guaifenesin (Mucinex) 1,200 mg PO Q12H PRN PRN Reason: Congestion Last Admin: 01/19/19 15:43 Dose: 1,200 mg Documented by: Heparin Sodium (Porcine) (Heparin) 5,000 unit SQ Q8HR [facility] Last Admin: 01/19/19 17:33 Dose: 5,000 unit Documented by: Ceftriaxone Sodium 1 gm/ (Sodium Chloride) 50 mls @ 100 mls/hr IVPB Q24HR [facility] Last Admin: 01/19/19 15:42 Dose: 100 mls/hr Documented by: Insulin Aspart (Novolog) 0 unit SQ ACHS [facility]; Protocol Last Admin: 01/19/19 22:08 Dose: Not Given Documented by: Methylprednisolone Sodium Succinate (Solu-Medrol) 60 mg IV Q6HR [facility] Last Admin: 01/19/19 17:33 Dose: 60 mg Documented by: Nystatin (Mycostatin Oral Susp) 500,000 unit PO QID PRN PRN Reason: Sore Throat Last Admin: 01/19/19 15:42 Dose: 500,000 unit Documented by: Objective - Vital Signs Vital signs: Vital Signs Temp 98 F 01/20/19 15:00 Pulse 96 01/20/19 16:51 Resp 12 01/20/19 15:00 BP 123/75 01/20/19 15:00 Pulse Ox 94 L 01/20/19 15:00 Intake & Output 01/19/19 01/20/19 01/20/19 18:59 06:59 18:59 Intake Total 240 240 Balance 240 240 Intake: Oral 240 240 Other: # Voids 2 2 2 - Exam PHYSICAL EXAMINATION: Patient is lying in the bed comfortably, no acute distress, awake alert and oriented.. HEENT: Normocephalic. Neck is supple. Pupils reactive. Nostrils clear. Oral cavity is moist. Ears reveal no drainage. Neck reveals no JVD, carotid bruits, or thyromegaly. CHEST EXAMINATION: Trachea is central. Symmetrical expansion. Bilateral air entry improved. Expiratory wheeze and diffuse rhonchi. CARDIAC: Normal S1, S2 with no gallops. No murmurs ABDOMEN: Soft. Bowel sounds normal. No organomegaly. No abdominal bruits. Extremities: reveal no edema. No clubbing or cyanosis Neurologically awake, alert, oriented x3 with well-coordinated movements. No focal deficits noted Skin: No rash or skin lesions. Psychiatric: Coperative. Nonsuicidal Musculoskeletal: No joint swelling or deformity. Normal range of motion. - Labs CBC & Chem 7: 01/20/19 06:20 01/20/19 06:20 Labs: Abnormal Lab Results - Last 24 Hours (Table) 01/19/19 01/20/19 01/20/19 Range/Units 22:07 06:20 06:20 WBC 17.9 H (3.8-10.6) k/uL Neutrophils # 16.4 H (1.3-7.7) k/uL Lymphocytes # 0.7 L (1.0-4.8) k/uL BUN 22 H (7-17) mg/dL Glucose 130 H (74-99) mg/dL POC Glucose (mg/dL) 121 H (75-99) mg/dL 01/20/19 01/20/19 Range/Units 07:22 11:57 WBC (3.8-10.6) k/uL Neutrophils # (1.3-7.7) k/uL Lymphocytes # (1.0-4.8) k/uL BUN (7-17) mg/dL Glucose (74-99) mg/dL POC Glucose (mg/dL) 119 H 181 H (75-99) mg/dL Microbiology - Last 24 Hours (Table) 01/20/19 00:50 Gram Stain - Preliminary Sputum Sputum Culture - Preliminary 01/17/19 13:45 Blood Culture - Preliminary Blood No Growth after 72 hours Assessment and Plan Assessment: Acute severe asthma exacerbation with acute tracheobronchitis Acute hypoxic respiratory failure secondary to asthma exacerbation Morbid obesity with BMI 41.2 Mild leukocytosis likely due to steroids and bronchitis Light tobacco smoker DVT prophylaxis with heparin subcu Plan: Patient will be continued on IV steroids in the form of methylprednisolone 60 mg every 6 hourly, DuoNeb's, Pulmicort and oxygen therapy as needed. Continue with antibiotics in the form of ceftriaxone and azithromycin.. Pulmonary is following. Will follow closely and further recommendations based on the clinical course. Smoking cessation has been counseled. Time with Patient: Greater than 30
[2019-01-21] MEDS: IPRATROPIUM-ALBUTEROL 3 ML NEB INHALATION SCH ×7 (00:36→22:56)
[2019-01-21] MEDS: INSULIN ASPART (NovoLOG) 100 UNIT/ML VIAL SQ SCH ×5 (00:44→20:43)
[2019-01-21] MEDS: HEPARIN SODIUM,PORCINE 5,000 UNIT/ML 1 ML VIAL SQ SCH ×4 (01:19→23:35)
[2019-01-21] MEDS: methylPREDNISolone SOD SUCCI 125 MG/2 ML VIAL IV SCH ×3 (01:20→13:06)
[2019-01-21 07:06] LABS: Glucose,Whole Blood 113 mg/dL (75-99)
[2019-01-21 07:22] LABS: Basophils # (A) 0.2 k/uL (0-0.2); Basophils % (A) 1 %; Eosinophils % (A) 0 %; HGB 14.2 gm/dL (11.4-16.0); Lymphocytes # (A) 0.6 k/uL (1.0-4.8); Lymphocytes % (A) 4 %; MCH 30.9 pg (25.0-35.0); MCV 93.7 fL (80.0-100.0); Mean Platelet Volume 6.2; Monocytes # (A) 0.5 k/uL (0-1.0); Monocytes % (A) 3 %; Neutrophils # (A) 14.2 k/uL (1.3-7.7); Neutrophils % (A) 91 %; Platelet Count 286 k/uL (150-450); RBC 4.59 m/uL (3.80-5.40); RDW 12.3 % (11.5-15.5); WBC 15.7 k/uL (3.8-10.6)
[2019-01-21] MEDS: BUDESONIDE 0.5 MG/2 ML NEBU INHALATION SCH ×2 (07:35→21:01)
[2019-01-21] MEDS: FORMOTEROL FUMARATE 20 MCG/2 ML NEBU INHALATION SCH ×2 (07:35→21:03)
[2019-01-21 07:38] LABS: African American GFR (CKD) >90 (>60 ml/min/1.73 sqM); Anion Gap 5 mmol/L; Blood Urea Nitrogen 21 mg/dL (7-17); Calcium 9.2 mg/dL (8.4-10.2); Carbon Dioxide 30 mmol/L (22-30); Chloride 104 mmol/L (98-107); Glucose 125 mg/dL (74-99); Potassium 4.7 mmol/L (3.5-5.1); Sodium 139 mmol/L (137-145)
[2019-01-21] MEDS: AZITHROMYCIN 500 MG TAB PO SCH (10:06)
[2019-01-21] MEDS: FAMOTIDINE 20 MG TAB PO SCH ×2 (10:06→20:42)
[2019-01-21 11:41] LABS: Glucose,Whole Blood 130 mg/dL (75-99)
[2019-01-21] MEDS: methylPREDNISolone SOD SUCCI 40 MG/ML 1 ML VIAL IV SCH ×3 (13:11→23:35)
[2019-01-21] MEDS: guaiFENesin 600 MG TABLET.ER PO PRN (13:14)
--- NOTE | 2019-01-21 14:01 | PN ---
PROGRESS NOTE DATE OF SERVICE: 01/21/2019 This is a 48-year-old female who was admitted with a diagnosis of acute exacerbation of COPD/asthmatic bronchitis. The patient has a previous history of tobacco use. She quit recently. She was admitted with a diagnosis of COPD exacerbation complicated by acute purulent tracheobronchitis. She is currently on appropriate antibiotics, bronchodilators, steroids and GI and DVT prophylaxis. Her primary care physician is Dr. Sigala. She did see Dr. Pagan a couple years ago when she was hospitalized. She also saw me in the office post discharge, but has not gone back to see him in the future. She should see him in followup once discharged from the hospital. Her complaints include shortness of breath, chest tightness, wheezing, cough and phlegm production. She is feeling a bit better. Less bronchospastic. She is still on oxygen therapy at 3 L/minute. Saturations are about 91% to 92% Current vital signs are reviewed. Temperature is 97.6, heart rate 80, respiratory rate 16, blood pressure 104/62 mean 76, 3 L saturation about 93%., maybe 94%. Appears mildly tachypneic. No audible wheezing. No conversational dyspnea. HEENT: Examination is grossly unremarkable. Nasal O2 in place. NECK: Supple. Full range of motion. No adenopathy or thyromegaly. Neck veins are flat. CARDIOVASCULAR: Examination reveals regular rhythm and rate. Heart rate about 80 beats per minute. S1, S2 normal. No S3, S4, or murmur. LUNGS: Reveal high-pitched expiratory wheezes. There is prolongation on forced maneuver. No crackles. No rhonchi. Breath sounds are equal bilaterally. ABDOMEN: Obese. Bowel sounds are heard. EXTREMITIES: Intact. No cyanosis, clubbing, or edema. SKIN: Without rash. NEUROLOGIC: Examination is brief but nonfocal. LABS: Reviewed. White count 15.7, hemoglobin 14.2, hematocrit 43.0, platelet count 286,000. Sodium, potassium, chloride, CO2 all normal. Anion gap 5. BUN and creatinine were 21 and 0.77. The rest of the labs look okay. Microbiology is currently pending. Sputum negative, blood negative. MEDICATIONS: Reviewed. Currently, from the pulmonary standpoint, she is on Pulmicort, formoterol, Rocephin, Zithromax, albuterol and Atrovent updrafts, and Solu-Medrol as well as Singulair. ASSESSMENT: 1. Acute exacerbation of chronic obstructive pulmonary disease with primary asthmatic bronchitis. 2. Previous history of tobacco use. 3. Previous admission for same. 4. Obesity. 5. Hypoxemic respiratory failure secondary to chronic obstructive pulmonary disease exacerbation. PLAN: The patient's oxygen will continue to be weaned down. Currently, she is on 3 L. Previously, she was on 5. She should continue her current medications including bronchodilators, steroids and antibiotics. Will continue to follow. Prognosis is guarded. She should never smoke again. We emphasized that to her today. MMODL / IJN: [id number] /
[2019-01-21 16:40] LABS: Glucose,Whole Blood 142 mg/dL (75-99)
[2019-01-21 20:15] LABS: Glucose,Whole Blood 154 mg/dL (75-99)
[2019-01-21] MEDS: MONTELUKAST 10 MG TAB PO SCH (20:42)
--- NOTE | 2019-01-21 21:16 | PN ---
PROGRESS NOTE DATE OF SERVICE: 01/21/2019 This 48-year-old woman who was admitted with COPD acute exacerbation also had severe acute purulent tracheobronchitis also. The patient also has significant shortness of breath. The patient also has morbid obesity. Dr. Pagan and Dr. Trammell are following the patient closely. The patient's pulse ox in the low 90s. The patient followed by Dr. Sigala in the outpatient setting. The patient is on high-dose IV steroids at this time. PAST MEDICAL HISTORY: Reviewed. REVIEW OF SYSTEMS: CARDIOVASCULAR SYSTEM: No angina or palpitations. RESPIRATORY: As mentioned earlier. GI no nausea or vomiting. no dysuria. NERVOUS SYSTEM: No numbness or weakness. CURRENT MEDICATIONS: Reviewed and include: 1. Tylenol p.r.n. 2. DuoNeb q.i.d. and p.r.n. 3. Xanax 0.5 q.i.d. 4. Zithromax 500 mg p.o. daily. 5. Pulmicort 0.5 daily. 6. Rocephin 1 g IV daily. 7. Pepcid 20 mg p.o. b.i.d. 8. Perforomist 20 mcg b.i.d. 9. Mucinex 1.2 g IV b.i.d. 10.Solu-Medrol 40 IV q.6 hours. 11.Singulair 10 mg q.h.s. 12.Mycostatin 500,000 p.o. q.i.d. p.r.n. PHYSICAL EXAM: Patient is alert, oriented x3. Pulse is 93. Blood pressure 118/72, respirations 16, temperature 97.6, pulse ox 93% on room air. HEENT: Conjunctivae normal. NECK: No JVD. CARDIOVASCULAR: S1, S2 muffled. RESPIRATIONS: Breath sounds diminished in the bases. Bilateral scattered rhonchi and crackles. ABDOMEN: Soft, nontender. LEGS: No edema. No swelling. CENTRAL NERVOUS SYSTEM: No focal deficits. LAB STUDIES: WBC 15.7. Glucose noted. ASSESSMENT: 1. Chronic obstructive pulmonary disease acute exacerbation with acute purulent tracheobronchitis. 2. Acute hypoxic respiratory failure secondary to above and acute asthma exacerbation present on admission. 3. Morbid obesity BMI of 41.2. 4. Mild leukocytosis. 5. Elevated random blood sugar secondary to steroids. 6. Deep vein thrombosis prophylaxis. 7. Gastrointestinal prophylaxis. RECOMMENDATIONS AND DISCUSSION: In this 48-year-old woman who presented with multiple complex medical issues, we will monitor the patient closely. Continue the current medications, management and symptomatic treatment. Continue the antibiotics. Continue DVT prophylaxis. Bronchodilators. Taper the IV steroids. The patient's pulse ox is still low. I would recommend room air pulse ox for evaluation for home oxygen therapy. Discussed with staff. Discussed with the director of casework. Guarded prognosis because of multiple complex medical issues. Further recommendations to follow. MMODL / IJN: [id number] /
[2019-01-22] MEDS: IPRATROPIUM-ALBUTEROL 3 ML NEB INHALATION SCH ×4 (03:13→16:40)
[2019-01-22] MEDS: methylPREDNISolone SOD SUCCI 40 MG/ML 1 ML VIAL IV SCH ×3 (05:26→17:07)
[2019-01-22 06:42] LABS: Glucose,Whole Blood 120 mg/dL (75-99)
[2019-01-22] MEDS: BUDESONIDE 0.5 MG/2 ML NEBU INHALATION SCH (07:13)
[2019-01-22] MEDS: FORMOTEROL FUMARATE 20 MCG/2 ML NEBU INHALATION SCH ×2 (07:13→07:20)
[2019-01-22] MEDS: INSULIN ASPART (NovoLOG) 100 UNIT/ML VIAL SQ SCH ×3 (09:04→17:07)
[2019-01-22] MEDS: HEPARIN SODIUM,PORCINE 5,000 UNIT/ML 1 ML VIAL SQ SCH ×2 (09:27→17:07)
[2019-01-22] MEDS: FAMOTIDINE 20 MG TAB PO SCH (09:27)
[2019-01-22] MEDS: AZITHROMYCIN 500 MG TAB PO SCH (09:27)
[2019-01-22] MEDS: guaiFENesin 600 MG TABLET.ER PO PRN (09:36)
[2019-01-22 11:48] LABS: Glucose,Whole Blood 120 mg/dL (75-99)
--- NOTE | 2019-01-22 13:58 | P.PN ---
Subjective Progress Note Date: 01/22/19 Principal diagnosis: Acute exacerbation of chronic obstructive pulmonary disease. his is a 48-year-old female with history of asthma as a child, and she had at least a 85-glec-kbnr smoking history. Patient was last seen in our office on 05/25/2017, and she was seen at the time for follow-up on her pneumonia. Her chest x-ray at that time showed no evidence of pneumonia. However her PFT showed moderate severe obstructive lung disease, with significant reversibility consistent with asthmatic bronchitis. At that time, the patient was counseled regarding smoking cessation, and she was placed on albuterol/Ventolin as well as breo 200/25, one puff twice a day. Her FEV1 at the time was 48%, however it improved up to 67% post one bronchodilator treatment. A full PFT was not performed on that visit in May of 2017. Patient never came back for follow-up to our office. However she was compliant with her medications, and she continued to smoke intermittently. Patient was admitted this time on 01/17/2019, with almost 2 weeks history of cough wheezing shortness of breath. Cough was described as productive with yellow phlegm, no fever no chills no hemoptysis no chest pain. Patient was initially seen by her primary care physician treated with antibiotics, but no improvement. Since she was admitted, the patient has been on antibiotics, bronchodilators, steroids, and not much improvement over the last 3 days, hence this consult was initiated today. Patient denies any symptoms of GERD denies any symptoms of ALLERGIC rhinitis, denies any symptoms of postnasal drip. Chest x-ray on this admission showed no evidence of infiltrate. The patient is seen today 01/22/2019 in follow-up on the regular medical floor. She is currently sitting up at the bedside. Awake and alert in no acute distress. She is still somewhat bronchospastic and wheezy. Almost back to her baseline. Still requiring 2 L of oxygen to maintain O2 saturation in the 90s. Blood culture reveals no growth. Sputum culture reveals no growth. She remains on ceftriaxone and azithromycin along with DuoNeb inhalations Pulmicort and Perforomist inhalations, IV Solu medrol. Objective - Vital Signs Vital signs: Vital Signs Temp 97.7 F 01/22/19 07:00 Pulse 90 01/22/19 12:05 Resp 18 01/22/19 12:05 BP 129/73 01/22/19 07:00 Pulse Ox 94 L 01/22/19 07:00 Intake & Output 01/21/19 01/22/19 01/22/19 18:59 06:59 18:59 Intake Total 938 Balance 938 Intake: IV 50 cefTRIAXone 1 gm In 50 Sodium Chloride 0.9% 50 ml @ 100 mls/hr IVPB Q24HR [facility] Rx#:[id number] Oral 888 Other: Voiding Method Toilet # Voids 2 - Exam GENERAL EXAM: Alert, active, comfortable in no apparent distress. On 2 L nasal cannula. HEAD: Normocephalic. EYES: Normal reaction of pupils, equal size. NOSE: Clear with pink turbinates. THROAT: No erythema or exudates. NECK: No masses, no JVD. CHEST: No chest wall deformity. LUNGS: Equal air entry with bilateral end expiratory wheeze, few scattered rhonchi. CVS: S1 and S2 normal with no audible murmur, regular rhythm. ABDOMEN: No hepatosplenomegaly, normal bowel sounds, no guarding or rigidity. SPINE: No scoliosis or deformity SKIN: No rashes CENTRAL NERVOUS SYSTEM: No focal deficits, tone is normal in all 4 extremities. EXTREMITIES: There is no peripheral edema. No clubbing, no cyanosis. Peripheral pulses are intact. - Labs CBC & Chem 7: 01/21/19 06:56 01/21/19 06:56 Labs: Abnormal Lab Results - Last 24 Hours (Table) 01/21/19 01/21/19 01/22/19 Range/Units 16:39 20:14 06:39 POC Glucose (mg/dL) 142 H 154 H 120 H (75-99) mg/dL 01/22/19 Range/Units 11:46 POC Glucose (mg/dL) 120 H (75-99) mg/dL Microbiology - Last 24 Hours (Table) 01/20/19 00:50 Gram Stain - Final Sputum Sputum Culture - Final 01/17/19 13:45 Blood Culture - Preliminary Blood No Growth after 96 hours Assessment and Plan Assessment: Impression: 1 acute exacerbation of COPD, consistent with asthmatic bronchitis. 2 tobacco dependence syndrome, patient quit smoking recently. 3 acute purulent tracheobronchitis. Recommendation: The patient was seen and evaluated by Dr. Cedillo. She is improved today as co mpared to yesterday. She could be cleared for discharge from the pulmonary standpoint. She may require home oxygen. Complete prednisone burst and taper starting at 40 mg daily for 4 days. Complete course of antibiotics. Follow-up in our office in 1-2 weeks' time. She is encouraged to call sooner with any recurrence of symptoms or other questions or concerns. I, the cosigning physician, performed a history & physical examination of the patient. Lungs sounds with bilateral end expiratory wheeze, scattered rhonchi, diminished. Maintaining good O2 saturations in the 90s on 2 L/m per nasal cannula. I discussed the assessment and plan of care with my nurse practitioner, Monica Armstrong. I attest to the above note as dictated by her.
[2019-01-22 14:20] VITALS: BP 133/72; RESP 16; TEMP 98.2
[2019-01-22 16:44] LABS: Glucose,Whole Blood 151 mg/dL (75-99)
[2019-01-22 16:54] VITALS: PULSE 90
--- NOTE | 2019-01-23 07:51 | DS ---
DISCHARGE SUMMARY DATE OF SERVICE: 01/22/2019 FINAL DIAGNOSES: 1. Chronic obstructive pulmonary disease exacerbation with acute purulent tracheobronchitis. 2. Acute hypoxic respiratory failure secondary to above and acute asthma exacerbation present on admission. 3. Morbid obesity with body mass index of 41.2. 4. Mild leukocytosis. 5. Elevated random blood sugar secondary to steroids. 6. Deep venous thrombosis prophylaxis. 7. Gastrointestinal prophylaxis. DISCHARGE DISPOSITION: The patient will be discharged in a stable condition with guarded prognosis. Total time taken 35 minutes. HISTORY OF PRESENT ILLNESS: This is a 48-year-old woman with a past medical history of multiple medical problems was admitted with COPD acute exacerbation as well as acute hypoxic respiratory failure. Patient treated with bronchodilators antibiotics and IV steroids in conjunction with Pulmonary, Dr. Cedillo. Patient improved significantly. Dr. Cedillo cleared the patient for discharge. The pulse ox is found to be 88% on ambulation. Home O2 is being arranged at this time. The patient is being followed by Dr. Cedillo in the outpatient setting. On exam, vitals are stable. CARDIOVASCULAR: S1, S. RESPIRATION: A few scattered rhonchi, no crackles. ABDOMEN: Soft. NERVOUS SYSTEM: No focal deficits. DISCHARGE ADVICE: 1. Diet is cardiac diet. 2. Activity limited until followup. 3. Follow up with Dr. Sigala in 2-3 days. 4. Follow up with Dr. Cedillo as recommended. DISCHARGE MEDICATIONS ARE: 1. Motrin p.r.n. 2. Mucinex 200 mg p.o. b.i.d. 3. Ceftin 500 mg p.o. b.i.d. for 3 days. 4. DuoNeb q.i.d. and p.r.n. 5. Nystatin 500,000 q.i.d. p.r.n. 6. Prednisone 40 mg daily for 3 days, 30 for 3 days, 20 for 3 days, 10 for 3 days, then stop. 7. Singulair 10 mg q.h.s. 8. Symbicort 160/4.5 one puff b.i.d. 9. Tylenol p.r.n. 10.Zithromax 500 mg p.o. daily for 5 days. Follow up labs with Dr. Sigala. Follow up with Dr. Cedillo as recommended. Once again, the patient will discharged be discharged in stable condition with guarded prognosis. MMODL / IJN: [id number] /
== END 2019-01-22 18:10 | disposition home or self-care (01) | DRG 190 ==
LOC: EC 13:06 → 4SSUR 16:06
PROVIDERS: ADMIT Internal Medicine; ATTEND Internal Medicine
DX: J44.1 Chronic obstructive pulmonary disease with (acute) exacerbation (principal); J96.01 Acute respiratory failure with hypoxia; Z68.41 Body mass index [BMI] 40.0-44.9, adult; J44.0 Chronic obstructive pulmonary disease with (acute) lower respiratory infection; E66.01 Morbid (severe) obesity due to excess calories; F17.200 Nicotine dependence, unspecified, uncomplicated; T38.0X5A Adverse effect of glucocorticoids and synthetic analogues, initial encounter; R73.9 Hyperglycemia, unspecified; J20.9 Acute bronchitis, unspecified; Z87.09 Personal history of other diseases of the respiratory system; Z98.891 History of uterine scar from previous surgery
CPT/HCPCS: 36415; 71045; 71046; 80048; 80053; 83735; 84484; 85025; 85379; 85610; 85730; 87040; 87070; 87205; 87502; 94640; 94667; 94760; 96361; 96365; 96375; 96376; 99291

== ENCOUNTER → 2019-02-06 | Outpatient (CLI) | payer BC ==
--- NOTE | 2019-02-06 15:14 | CT ---
EXAMINATION TYPE: CT chest wo con DATE OF EXAM: 02/06/2019 COMPARISON: Chest x-ray 01/31/2019 HISTORY: cough, SOB CT DLP: 230 mGycm. Automated Exposure Control for Dose Reduction was Utilized. TECHNIQUE: CT scan of the thorax is performed without IV contrast. FINDINGS: LUNGS: The lungs are grossly clear, there is no concerning parenchymal mass or nodule identified. T here is no pleural effusion or pneumothorax seen. The tracheobronchial tree is patent, there is thic kening of the bronchial arce diffusely. MEDIASTINUM: Lack of IV contrast is noted to limit evaluation for mediastinal and especially hilar ad enopathy. There are no definitive greater than 1 cm hilar or mediastinal lymph nodes. No cardiomega ly or pericardial effusion is seen. OTHER: No additional significant abnormality is seen. IMPRESSION: Correlate for bronchitis, reactive airways disease
== END | disposition home or self-care (01) ==
LOC: RADCTMAIN 14:36
PROVIDERS: ATTEND Internal Medicine
DX: J44.9 Chronic obstructive pulmonary disease, unspecified (principal)
CPT/HCPCS: 71250

== ENCOUNTER → 2019-03-26 | Outpatient (CLI) | payer BC ==
--- NOTE | 2019-03-26 09:15 | US ---
EXAMINATION TYPE: US abdomen complete DATE OF EXAM: 03/26/2019 COMPARISON: CT chest February 06, 2019 CLINICAL HISTORY: R10.33 PERIUMBILICAL PAIN. Abdominal hardening is noted by patient after meals, aci d reflux; HT 5'4, WT 250lbs. EXAM MEASUREMENTS: Liver Length: 16.1 cm Gallbladder Wall: 0.4 cm CBD: 0.4 cm Spleen: 13.0 x 11.7 x 5.1 cm Right Kidney: 11.0 x 4.6 x 3.8 cm Left Kidney: 9.8 x 5.2 x 4.5 cm Pancreas: Heterogeneous Liver: fatty liver appearance Gallbladder: wnl Evidence for sonographic Way's sign: no CBD: wnl Spleen: prominent size in only one measure Right Kidney: No hydronephrosis or masses seen Left Kidney: No hydronephrosis or masses seen Upper IVC: wnl Abd Aorta: size is wnl, and limitedly seen due to overlying bowel gas Umbilical area US at abdominal hardening noted after meals by patient : no hernia is seen at abdomina l wall fascia at patient's area of concern, with or without Valsalva Maneuvers. The visualized liver is heterogeneously hyperechoic. The intrahepatic portion of the IVC and visuali zed proximal and mid abdominal aorta are within normal limits. There is no evidence of cholelithiasi s. Common bile duct is unremarkable. The visualized portions of the pancreas are slightly heterogen eous. The spleen is unremarkable. Kidneys are symmetric and free of hydronephrosis. No renal lesio ns are seen. IMPRESSION: No suspicious ventral wall hernia during dynamic scanning. No acute findings are evident. Fatty infiltration of liver is noted.
== END | disposition home or self-care (01) ==
LOC: RADUSWWP 08:08
PROVIDERS: ATTEND Internal Medicine Cardiovascular Disease
DX: K76.0 Fatty (change of) liver, not elsewhere classified (principal)
CPT/HCPCS: 76700

== ENCOUNTER 2019-12-25 18:02 | Emergency (ER) | payer BC ==
--- NOTE | 2019-12-25 18:46 | ED ---
Lower Extremity Injury HPI - General Source: patient Mode of arrival: ambulatory Limitations: no limitations <Ace Rivera - Last Filed: 12/25/19 22:07> <DeanmodestoKarina Megan - Last Filed: 12/25/19 23:43> - General Chief Complaint: Extremity Injury, Lower Stated Complaint: leg swelling/bruising Time Seen by Provider: 12/25/19 18:22 - History of Present Illness Initial Comments: She is a 49-year-old female presenting to the emergency department with a chief complaint of leg swelling. Patient reports one week ago she was at work, tripped over a toolbox and landed directly on her left knee. Patient reports there was initially some swelling and ecchymosis to the left knee which has gradually increased and is now moving distally to her foot. She denies any pain but does report continual appearance of bruises throughout the leg. He reports today she also developed some bruising around the toes. She denies any hematologic conditions. Does report some pressure throughout her whole leg due to swelling but no significant pain. States she continue to go to work after the incident. She denies any numbness or tingling. Denies any chest pain or shortness of breath. (Ace Rivera) - Related Data Home Medications Medication Instructions Recorded Confirmed Ibuprofen [Motrin Ib] 400 mg PO Q4H PRN 01/17/19 01/17/19 guaiFENesin [Mucinex] 1,200 mg PO Q12H PRN 01/17/19 01/17/19 Previous Rx's Medication Instructions Recorded Acetaminophen Tab [Tylenol] 650 mg PO Q4HR PRN tab 01/22/19 Azithromycin [Zithromax] 500 mg PO DAILY #5 tab 01/22/19 Budesonide/Formoterol Fumarate 1 puff IH BID #1 hfa.aer.ad 01/22/19 [Symbicort 160-4.5 Mcg Inhaler] Cefuroxime Axetil [Ceftin] 500 mg PO BID 3 Days #6 tab 01/22/19 Ipratropium-Albuterol Nebulize 3 ml INHALATION RT-Q2H PRN 01/22/19 [Duoneb 0.5 mg-3 mg/3 ml Soln] ampul.neb Ipratropium-Albuterol Nebulize 3 ml INHALATION RT-Q6H #120 01/22/19 [Duoneb 0.5 mg-3 mg/3 ml Soln] ampul.neb Montelukast [Singulair] 10 mg PO HS #30 tab 01/22/19 Nystatin 100,000 Unit/ml Susp 500,000 unit PO QID PRN #60 cup 01/22/19 [Mycostatin Oral Susp] predniSONE 10 mg PO DIRECTED #30 tab 01/22/19 Allergies Allergy/AdvReac Type Severity Reaction Status Date / Time azithromycin Allergy Rash/Hives Verified 12/25/19 18:13 Review of Systems ROS Other: All systems not noted in ROS Statement are negative. <Ace Rivera - Last Filed: 12/25/19 22:07> ROS Other: All systems not noted in ROS Statement are negative. <Karina March - Last Filed: 12/25/19 23:43> ROS Statement: Those systems with pertinent positive or pertinent negative responses have been documented in the HPI. Past Medical History Past Medical History: No Reported History, Asthma Additional Past Medical History / Comment(s): heart murmer since childhood History of Any Multi-Drug Resistant Organisms: None Reported Past Surgical History: Section Past Anesthesia/Blood Transfusion Reactions: No Reported Reaction Past Psychological History: No Psychological Hx Reported Smoking Status: Never smoker Past Alcohol Use History: Occasional Past Drug Use History: None Reported - Past Family History Father Family Medical History: No Reported History <Ace Rivera - Last Filed: 12/25/19 22:07> General Exam Limitations: no limitations General appearance: alert, in no apparent distress, obese Head exam: Present: atraumatic, normocephalic, normal inspection Eye exam: Present: normal appearance, PERRL, EOMI Pupils: Present: normal accommodation ENT exam: Present: normal exam, normal oropharynx, mucous membranes moist, TM's normal bilaterally, normal external ear exam Neck exam: Present: normal inspection, full ROM. Absent: tenderness, lymphadenopathy Respiratory exam: Present: normal lung sounds bilaterally. Absent: respiratory distress, wheezes, rales Cardiovascular Exam: Present: regular rate, normal rhythm, normal heart sounds Extremities exam: Present: normal inspection, full ROM, tenderness (Some tenderness over the anterior lateral aspect of the left knee. Ecchymosis also noted throughout the leg.), normal capillary refill, pedal edema (+2 nonpitting edema.), calf tenderness (Very mild left lower extremity tenderness), other (+2 dorsalis pedis and posterior tibialis laterally.). Absent: joint swelling Back exam: Present: normal inspection, full ROM. Absent: tenderness, CVA tenderness (R), CVA tenderness (L) Neurological exam: Present: alert, oriented X3, normal gait Psychiatric exam: Present: normal affect Skin exam: Present: warm, dry, intact, normal color <Ace Rivera - Last Filed: 12/25/19 22:07> Course Vital Signs 12/25/19 12/25/19 18:10 20:38 Temperature 97.7 F 97.9 F Pulse Rate 80 75 Respiratory 16 17 Rate Blood Pressure 107/71 138/86 O2 Sat by Pulse 97 97 Oximetry Medical Decision Making <Ace Rivera - Last Filed: 12/25/19 22:07> <Karina March - Last Filed: 12/25/19 23:43> - Medical Decision Making patient is a 41-year-old female presenting to the emergency department with a chief complaint of right leg swelling. Physical examination reveals sporadic ecchymosis and +2 nonpitting edema. No calf tenderness. Negative Homans. She has full range of motion in the knee with mild tenderness to palpation on the anterior aspect of the left knee. X-ray is unremarkable. Ultrasound reveals no signs of DVT or PE. She is otherwise neurovascularly intact in the left lower stomach. Osmany wrap was applied. She was advised to keep the leg elevated above heart level to help decrease the swelling. She does not have any chest pain or shortness of breath. She was advised to follow with the primary care physician. Strict return parameters were thoroughly discussed the patient was understanding and agreeable. Case discussed with physician. (Ace Rivera) I was available for consultation in the emergency department. The history and physical exam were done by the midlevel provider. I was consulted for this patients care. I reviewed the case with the midlevel provider and based on their presentation of the patient, I agree with the assessment, medical decision making and plan of care as documented. Chart was dictated using [employer] dictation software. Attempts were made to correct any dictation errors however some typographical errors may persist. Patient was seen during a national state of emergency due to the Covid-19 pandemic. (Karina March) Disposition Is patient prescribed a controlled substance at d/c from ED?: No Time of Disposition: 20:05 <Ace Rivera - Last Filed: 12/25/19 22:07> <Karina March - Last Filed: 12/25/19 23:43> Clinical Impression: Left leg swelling, Left knee injury Disposition: HOME SELF-CARE Condition: Stable Instructions (If sedation given, give patient instructions): Leg Edema (ED) Additional Instructions: Keep your leg elevated. 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 Return to emergency department if symptoms worsen. Referrals: Greg Sigala MD [Primary Care Provider] - 1-2 days
--- NOTE | 2019-12-25 19:36 | XR ---
EXAMINATION TYPE: XR knee complete LT DATE OF EXAM: 12/25/2019 COMPARISON: NONE HISTORY: Leg pain TECHNIQUE: 4 views FINDINGS: I see no fracture nor dislocation. Joint spaces are normal. There is no evidence of knee macario int effusion. IMPRESSION: Negative left knee exam.
--- NOTE | 2019-12-25 19:48 | US ---
EXAMINATION TYPE: US venous doppler duplex LE DATE OF EXAM: 12/25/2019 7:17 PM COMPARISON: NONE CLINICAL HISTORY: trauma x1week, swelling throughout LLE. Trauma; patient fell 1 week ago. Swelling t o left lower extremity. No hx of DVT. Patient does not take blood thinners. SIDE PERFORMED: Left TECHNIQUE: The lower extremity deep venous system is examined utilizing real time linear array sonog bobbi with graded compression, doppler sonography and color-flow sonography. VESSELS IMAGED: External Iliac Vein (EIV) Common Femoral Vein Deep Femoral Vein Greater Saphenous Vein * Femoral Vein Popliteal Vein Small Saphenous Vein * Proximal Calf Veins (* superficial vessels) Left Leg: No evidence of DVT in veins imaged at this time from prox calf veins to EIV. IMPRESSION: No evidence of deep vein thrombosis in the left leg.
[2019-12-25 20:39] VITALS: BP 138/86; PULSE 75; RESP 17; TEMP 97.9
== END 2019-12-25 20:39 | disposition home or self-care (01) ==
LOC: EC 18:02
DX: S89.92XA Unspecified injury of left lower leg, initial encounter (principal); M79.89 Other specified soft tissue disorders; S80.01XA Contusion of right knee, initial encounter; Z88.1 Allergy status to other antibiotic agents; W22.8XXA Striking against or struck by other objects, initial encounter; Y92.69 Other specified industrial and construction area as the place of occurrence of the external cause
CPT/HCPCS: 99284

== ENCOUNTER → 2023-08-07 | Outpatient (CLI) | payer OTHER ==
--- NOTE | 2023-08-07 08:07 | CT ---
EXAMINATION TYPE: CT brain wo con DATE OF EXAM: 08/07/2023 COMPARISON: None HISTORY: 52-year-old female S09.90XA UNSPECIFIED INJURY OF HEAD, INITIAL ENCOU, pain. TECHNIQUE: Examination was done in axial plane without intravenous contrast. Coronal and sagittal r econstructions performed. CT DLP: 98k6.5 mGycm Automated exposure control for dose reduction was used. FINDINGS: There is no evidence of acute intracranial hemorrhage, acute ischemic changes, mass, mass-effect, or extra-axial fluid collection. There is no effacement of cerebral sulci or basal subarachnoid cister ns. There is no hydrocephalus. There is no midline shift. Vásquez-white matter distinction is preserv ed. There is 3 mm of cerebellar tonsillar ectopia noted. Moderate mucosal thickening ethmoid air cells. Large mucosal retention cyst right sphenoid sinus dl uring 1.7 cm. Additional scattered mild mucosal thickening throughout the bilateral maxillary and sph enoid sinuses. Mastoid air cells are well pneumatized. Orbits and globes are intact. No calvarial fracture seen. IMPRESSION: 1. No skull injury identified. No acute intracranial abnormality seen. 2. Incidental 3 mm of benign cerebellar tonsillar ectopia. 3. Mild to moderate chronic paranasal sinus disease.
== END | disposition home or self-care (01) ==
LOC: RADCTMAIN 07:22
PROVIDERS: ATTEND Internal Medicine
DX: S09.90XA Unspecified injury of head, initial encounter (principal); J34.89 Other specified disorders of nose and nasal sinuses; Q04.8 Other specified congenital malformations of brain
CPT/HCPCS: 70450

== ENCOUNTER → 2024-04-03 | Outpatient (CLI) | payer BC ==
--- NOTE | 2024-04-03 09:59 | MM ---
Reason for Exam: Screening (asymptomatic). Baseline mammogram. Patient History: Menarche at age 13. First Full-Term at age 26. Mother had breast cancer at or over age 50. Last menstrual period: 03/13/2024 Risk Values: Carolee 5 year model risk: 2.1%. NCI Lifetime model risk: 16.3%. Prior Study Comparison: Patient's first Mammogram. Tissue Density: The breasts are heterogeneously dense, which may obscure small masses. Findings: Analyzed By CAD. Right breast: Heterogenous dense tissue also right breast upper outer aspect. Left breast: Multiple masslike areas are seen in the middle depth of the left breast slightly medial. Overall Assessment: Incomplete: need additional imaging evaluation, BI-RAD 0 Management: Diagnostic Mammogram of both breasts. Diagnostic Breast Ultrasound of the left breast. [facility] will attempt to contact patient to return for supplemental views and ultrasound if indicated. Patient should continue monthly self-breast exams. A clinical breast exam by your physician is recommended on an annual basis. This exam should not preclude additional follow-up of suspicious palpable abnormalities. Note on Carolee scores and lifetime risk: 1. A Carolee score greater than 3% is considered moderate risk. If this is the case, consider specialist referral to assess eligibility for a risk reducing agent. 2. If overall lifetime risk for the development of breast cancer is 20% or higher, the patient may qualify for future screening with alternating mammogram and breast MRI. [facility], , 04/03/2024 9:56 AM. Electronically signed and approved by: Brian Velasquez DO
--- NOTE | 2024-04-03 11:43 | US ---
EXAMINATION TYPE: US thyroid st tissue head/neck DATE OF EXAM: 04/03/2024 COMPARISON: NONE CLINICAL INDICATION: Female, 53 years old with history of E04.1 RH THYROID NODULE; Goiter TECHNIQUE: Grayscale and color Doppler imaging of the thyroid gland. FINDINGS: GLAND SIZE: Right Lobe: 5.1x2.7x3.0 cm Overall Parenchyma: heterogeneous Left Lobe: 4.4x2.4x2.4 cm Overall Parenchyma: heterogeneous Isthmus Thickness: 0.4 cm NODULES RIGHT: # of nodules measured on right: 1 1. 4.2 X 2.3 x 2.7 cm, mid mid, solid or almost completely solid, hyperechoic nodule, which is wide r than tall, with smooth margins, without echogenic foci. TR3. LEFT: # of nodules measured on left: 2 1. 1.7 X 1.1 x 1.5 cm, upper lateral, solid or almost completely solid, hyperechoic nodule, which i s wider than tall, with smooth margins, without echogenic foci. TR 3. 2. 2.2 X 1.7 x 1.7 cm, lower lateral, solid or almost completely solid, isoechoic nodule, which is wider than tall, with smooth margins, without echogenic foci. TR 3. ISTHMUS: # of nodules measured in the isthmus: 0 Bilateral neck scanned, no evidence of lymphadenopathy. Heterogeneous normal-sized thyroid with bilateral nodules as detailed above IMPRESSION: Heterogeneous multinodular normal-sized thyroid as detailed above. Ultrasound-guided FNA of the large st right-sided nodule is advised. 2017 ACR TI-RADS LEVEL: TR-RADS 3 - Mildly Suspicious: Follow if > 1.5 cm, FNA if > 2.5 cm *Highest TI-RADS level nodule reported [email or web address] [facility], , 04/03/2024 11:41 AM
--- NOTE | 2024-04-03 12:09 | CA ---
Exercise Stress Test Report Name: Sita Allen Exam Date: 04/03/2024 09:26 Exam Location: [facility] Stress Ht (in): 63 Wt (lb): 298 BSA: 2.29 Ordering Phys: Amisha Edwarsd MD Referring Phys: JAIMIE Technologist: Andrew Pollock Age: 53 Gender: F : 1970 Procedure CPT: Indications: Z12.31 MMS Z13.820 OSTEO E04.1 THY NOD I25.9 MYOIS ICD-10 Codes: Patient History: HYPERCHOLESTEROLEMIA, PRIOR SMOKER, ASTHMA Medications: SINGULAIR Meds past 24 hrs: Pretest Chest Pain: STRESS TEST Harinder Protocol Exercise Duration (min:sec): 04:[address] Depressions (mm): Angina Score: Lowry Score: Resting HR (bpm): 88 Peak HR (bpm): 145 Resting BP (mmHg): 118 / 76 Peak BP (mmHg): 170 / 66 MPHR: 168 Target HR: 143 % MPHR: 86 METS: 6.4 Total Dose: Peak Dose: Atropine: Double Product: 98683 BP Response: Stress Termination: TARGET HR REACHED/MAX EXERTION Stress Symptoms: NO SYMPTOMS Stress Summary: ECG ANALYSIS Resting ECG: Normal sinus rhythm heart rate 77 bpm Stress ECG: No significant ST-T wave changes that are diagnostic for ischemia by ST segment analysis No significant arrhythmias or ectopic beats noted during the stress CONCLUSIONS Below average exercise tolerance for age achieving 6.4 METS Normal blood pressure and heart rate response to exercise Normal clinical response to treadmill exercise Nonischemic ECG response to treadmill exercise Overall normal treadmill ECG stress test with poor exercise tolerance Dr Suman Felder (Electronically Signed) Final Date: 03 April 2024 12:08
--- NOTE | 2024-04-03 12:40 | NM ---
EXAMINATION TYPE: NM stress cardiolite complete DATE OF EXAM: 04/03/2024 COMPARISON: NONE CLINICAL INDICATION: Female, 53 years old with history of Z12.31 MMS Z13.820 OSTEO E04.1 THY NOD I25. 9 MYOIS; history of hypercholesterolemia and asthma. TECHNIQUE: After the intravenous administration of 9.95 mCi Tc 99m Sestamibi - Rest images obtained 45 minutes post injection. The patient exercised using a YOANNA protocol and 1 minute prior to peak exercise was injected with 25.5 mCi Tc 99m Sestamibi - Stress images obtained 10 minutes post injecti on. FINDINGS: Targeted heart rate was achieved during performance of the study. Review of stress and rest SPECT deborah ges demonstrates area of decreased uptake on stress and rest images inferior left ventricular wall th ough is more prominent on stress images. Acute ischemia at this level needs to be considered. Gated analysis shows overall estimated left ventricular ejection fraction of 64 %. IMPRESSION: Possible acute ischemia inferior left ventricular wall. Need to further investigate with direct catheter angiogram should be based on clinical and EKG correlation. [facility], , 04/03/2024 12:38 PM
--- NOTE | 2024-04-03 15:12 | BD ---
EXAMINATION TYPE: Axial Bone Density DATE OF EXAM: 04/03/2024 CLINICAL HISTORY: 53 years old Female. ICD-10 CODE: Z13.820 OSTEO , Additional History: Height: 5 ft 3 in Weight: 298 FRAX RISK QUESTIONS: Alcohol (3 or more units per day): no Family History (Parent hip fracture): no Glucocorticoids (More than 3mos): no (Ex: prednisone, prednisolone, methylprednisolone, dexamethasone, and hydrocortisone). History of Fracture in Adulthood: yes Secondary Osteoporosis: 1. Type 1 Diabetes: no 2. Hyperthyroidism: no 3. Menopause before 45: no 4. Malnutrition: no 5. Chronic liver disease: no Rheumatoid Arthritis: no Current Tobacco Use: no RISK FACTORS HISTORY OF: Surgery to Spine/Hip(right/left)/Wrist (right/left): no MEDICATIONS: Thyroid Medications: none Osteoporosis Medications: none EXAM MEASUREMENTS: Bone mineral densitometry was performed using the [employer] System. Bone mineral density as measured about the Lumbar spine is: ----- L1-L4(G/cm2): 1.002 T Score Values are as follows: ----- L1: -1.2 ----- L2: -1.5 ----- L3: -1.8 ----- L4: -1.5 ----- L1-L4: -1.5 Z Score Values are as follows: ----- L1: -1.8 ----- L2: -2.1 ----- L3: -2.4 ----- L4: -2.1 ----- L1-L4: -2.1 baseline Bone mineral density about the R hip (g/cm2): 0.890 Bone mineral density about the L hip (g/cm2): 0.923 T Score values are as follows: -----R Neck: -1.1 -----L Neck: -0.8 -----R Total: -0.9 -----L Total: -0.2 Z Score values are as follows: -----R Neck: -0.9 -----L Neck: -0.7 -----R Total: -1.1 -----L Total: -0.5 baseline FRAX%s: The graph provided illustrates a 7.2 % chance for a major osteoporotic fx and a 0.4 % chance for the hips probability for fx in 10 years time. IMPRESSION: Osteopenia (T Score between -2.5 and -1). There is slightly increased risk of fracture and the patient may be considered for treatment. Re-Screen 2-5 years. NOTE: T-SCORE=SD OF THE YOUNG ADULT MEAN. [facility], , 04/03/2024 3:10 PM
== END | disposition home or self-care (01) ==
LOC: RADMAMWWP 07:10
PROVIDERS: ATTEND Internal Medicine
DX: Z12.31 Encounter for screening mammogram for malignant neoplasm of breast (principal); Z13.820 Encounter for screening for osteoporosis; I25.9 Chronic ischemic heart disease, unspecified; E04.2 Nontoxic multinodular goiter; R92.333 Mammographic heterogeneous density, bilateral breasts; E78.00 Pure hypercholesterolemia, unspecified; J45.909 Unspecified asthma, uncomplicated; M85.89 Other specified disorders of bone density and structure, multiple sites; Z80.3 Family history of malignant neoplasm of breast
CPT/HCPCS: 93017; 77080; 77067; 76536; 78452; A9500

== ENCOUNTER → 2024-04-11 | Outpatient (CLI) | payer BC ==
--- NOTE | 2024-04-11 08:09 | MM ---
Reason for Exam: Additional evaluation requested from abnormal screening. Last screening mammogram was performed less than 1 month ago. Patient History: Menarche at age 13. First Full-Term at age 26. Mother had breast cancer at or over age 50. Risk Values: Carolee 5 year model risk: 2.1%. NCI Lifetime model risk: 16.3%. Prior Study Comparison: 04/03/2024 Bilateral MG screening mammo w CAD, [facility]. Tissue Density: The breasts are heterogeneously dense, which may obscure small masses. Findings: Analyzed By CAD. Approximately 2.1 cm circumscribed lesion persists on additional views 4 cm distance from nipple in the left breast. No suspicious focal lesion persists in the right breast on additional views. Focal dense tissue is redemonstrated. Overall Assessment: Incomplete: need additional imaging evaluation, BI-RAD 0 Management: Diagnostic Breast Ultrasound of the left breast. Targeted ultrasound left breast. Results were given to the patient verbally at the time of exam. Patient should continue monthly self-breast exams. A clinical breast exam by your physician is recommended on an annual basis. This exam should not preclude additional follow-up of suspicious palpable abnormalities. Note on Carolee scores and lifetime risk: 1. A Carolee score greater than 3% is considered moderate risk. If this is the case, consider specialist referral to assess eligibility for a risk reducing agent. 2. If overall lifetime risk for the development of breast cancer is 20% or higher, the patient may qualify for future screening with alternating mammogram and breast MRI. [facility], , 04/11/2024 8:05 AM. Electronically signed and approved by: Shubham Harvey M.D.
--- NOTE | 2024-04-11 08:46 | USB ---
Reason for Exam: Additional evaluation requested from abnormal screening. Patient History: Menarche at age 13. First Full-Term at age 26. Mother had breast cancer at or over age 50. Risk Values: Carolee 5 year model risk: 2.1%. NCI Lifetime model risk: 16.3%. Technique: Method: Targeted. Prior Study Comparison: 04/03/2024 Bilateral MG screening mammo w CAD, [facility]. Findings: The axilla of the left breast and the retroareolar of the left breast were scanned. Targeted ultrasound left breast shows a 1.6 x 1.2 x 1.4 cm oval avascular parallel mass behind the left nipple believed to correspond to mammogram abnormality. Benign-appearing left axillary lymph node is seen. Overall Assessment: Suspicious, BI-RAD 4 Management: Ultrasound Core Biopsy of the left breast. A clinical breast exam by your physician is recommended on an annual basis and results should be correlated with mammographic findings. This exam should not preclude additional follow-up of suspicious palpable abnormalities. Results were given to the patient verbally at the time of exam. [facility], , 04/11/2024 8:42 AM. Electronically signed and approved by: Shubham Harvey M.D.
== END | disposition home or self-care (01) ==
LOC: RADMAMWWP 07:30
PROVIDERS: ATTEND Internal Medicine
DX: R92.8 Other abnormal and inconclusive findings on diagnostic imaging of breast (principal); R92.333 Mammographic heterogeneous density, bilateral breasts; Z80.3 Family history of malignant neoplasm of breast
CPT/HCPCS: 77062; 77066

== ENCOUNTER → 2024-04-24 | Day surgery (SDC) | payer BC ==
--- NOTE | 2024-04-24 12:44 | USB ---
Risk Values: Carolee 5 year model risk: 2.1%. NCI Lifetime model risk: 16.3%. Electronically signed and approved by: Brian Velasquez DO
== END ==
LOC: RADUSWWP 07:10
PROVIDERS: ATTEND Surgery
DX: Z53.8 Procedure and treatment not carried out for other reasons (principal); R92.8 Other abnormal and inconclusive findings on diagnostic imaging of breast